=== PATIENT | female | born 1945 | race Caucasian/White ===

== ENCOUNTER 2019-09-15 13:36 | Emergency (ER) | payer MEDICARE, OTHER ==
[~2019-09-15] VITALS: Ht 160 cm; Wt 84.4 kg
--- OUTSIDE RECORDS SUMMARY | ~2019-09-15 | XMS | Encounter Summary ---
Demographics + + + | Address | [address] | | | [place] [address] | + + + | Home Phone | | + + + | Preferred Language | Unknown | + + + | Marital Status | Single | + + + | Anabaptism Affiliation | Unknown | + + + | Race | White | + + + | Ethnic Group | Not or | + + + Author + + + | Author | [facility] | + + + | Organization | [facility] | + + + | Address | Unknown | + + + | Phone | Unavailable | + + + Support + + +---------+ + | Name | Relationship | Address | Phone | + + +---------+ + | Veronica Enciso | ECON | Unknown | | + + +---------+ + Care Team Providers + +------+ + | Care Lumber Stacker Name | Role | Phone | + +------+ + | Prasanth Mooney DO | PCP | | + +------+ + Encounter Details +--------+ + + + + | Date | Type | Department | Care Team | Description | +--------+ + + + + | 09/11/ | Telephone | Neurosurgery at | Sally Casey V, | | | 2019 | | [facility] [address] | [address] | | | | | Cindy Mailcode: [id number] | [address] | | | | | [facility] | [place], [place] | | | | | and [place], | [address] | | | | | [facility] | [phone] | | | | | [place], [place] | | | | | | [address] | | | | | | [phone] | | | +--------+ + + + + Social History + +-------+ +--------+------+ | Tobacco Use | Types | Packs/Day | Years | Date | | | | | Used | | + +-------+ +--------+------+ | Former Smoker | | | | | + +-------+ +--------+------+ + +---+---+---+ | Smokeless Tobacco: | | | | | Never Used | | | | + +---+---+---+ + + | Comments: quit 30 yrs ago | + + + + +---------+ + | Alcohol Use | Drinks/Week | oz/Week | Comments | + + +---------+ + | Not Currently | | | | + + +---------+ + + + + | Sex Assigned at | Date Recorded | | | | + + + | Not on file | | + + + + + + + | Job Start Date | Occupation | Industry | + + + + | Not on file | Not on file | Not on file | + + + + + + + + | Travel History | Travel Start | Travel End | + + + + + + | No recent travel history available. | + + documented as of this encounter Plan of Treatment Not on filedocumented as of this encounter Visit Diagnoses Not on filedocumented in this encounter"
--- OUTSIDE RECORDS SUMMARY | ~2019-09-15 | XMS | Encounter Summary ---
Demographics + + + | Address | [address] [place] [address] | | | [place] [address] | + + + | Home Phone | | + + + | Preferred Language | Unknown | + + + | Marital Status | | + + + | Mandaen Affiliation | Unknown | + + + | Race | Unknown | + + + | Ethnic Group | Unknown | + + + Author + + + | Author | [facility] | | | and [place] | + + + | Organization | [facility] | | | and [place] | + + + | Address | Unknown | + + + | Phone | Unavailable | + + + Support + + + + + | Name | Relationship | Address | Phone | + + + + + | Blackmonherrera Burt | ECON | [address] | | | | | , [address] | | + + + + + Care Team Providers + +------+ + | Care Ultrasonic Solderer Name | Role | Phone | + +------+ + | Jasson Florian MD | PCP | | + +------+ + Reason for Visit +--------+ + | Reason | Comments | +--------+ + | Apnea | | +--------+ + Encounter Details +--------+---------+ + + + | Date | Type | Department | Care Team | Description | +--------+---------+ + + + | 11/29/ | Office | [facility] | Lang Hernandez PA | JAIRO on CPAP (Primary | | 2015 | Visit | SLEEP DISORDER [address] | [address] | Dx) | | | | [address] [place] | [place], [place] | | | | | [place] [address] | [address] | | | | | [phone] | | | +--------+---------+ + + + Social History + +-------+ +--------+------+ | Tobacco Use | Types | Packs/Day | Years | Date | | | | | Used | | + +-------+ +--------+------+ | Never Smoker | | | | | + +-------+ +--------+------+ + +---+---+---+ | Smokeless Tobacco: | | | | | Never Used | | | | + +---+---+---+ + + +---------+ + | Alcohol Use | Drinks/Week | oz/Week | Comments | + + +---------+ + | No | | | | + + +---------+ [...] + + documented as of this encounter Last Filed Vital Signs + + + + + | Vital Sign | Reading | Time Taken | Comments | + + + + + | Blood Pressure | 120/78 | 11/29/2014 11:34 AM | | | | | PST | | + + + + + | Pulse | 96 | 11/29/2014 11:34 AM | | | | | PST | | + + + + + | Temperature | - | - | | + + + + + | Respiratory Rate | 14 | 11/29/2014 11:34 AM | | | | | PST | | + + + + + | Oxygen Saturation | 98% | 11/29/2014 11:34 AM | | | | | PST | | + + + + + | Inhaled Oxygen | - | - | | | Concentration | | | | + + + + + | Weight | 97.1 kg (214 lb 1.6 | 11/29/2014 11:34 AM | | | | oz) | PST | | + + + + + | Height | - | - | | + + + + + | Body Mass Index | 38.54 | 11/01/2014 9:08 AM | | | | | PST | | + + + + + documented in this encounter Progress Notes Lang Hernandez PA - 11/29/2014 11:26 AM PST Subjective: Patient ID: Corina Garcia is a 69 y.o. female. HPI last office visit was: 11/26/2014 date of polysomnography: 11/07/2014 AHI: 17.6 RDI: 17.6 O2%: 81% with 36.9 minutes below 88% Machine type: ResMed AirSense 10 with nasal pillows obtained from: [facility] in [place] pressure: 5-20 cm 95%: 12.8 cm maximum: 13.0 cm Nights using CPAP: 3/3 % of nights >4 hours: 33% average usage (all nights): 3:07 average usage (nights used): 3:07 AHI: 10.3 Corina comes in for CPAP compliance. She has used her CPAP each of her first three nights , but has struggled with wearing it for the duration of her sleep. The first night was diff icult for her to tolerate the pressure, but she wore it for most of the night. The second n ight, she had a difficult time because it wasn't enough pressure. Last night, she fell asle ep without difficulty, but woke later in the night because her mask was leaking. She was no t able to correct the leak, so she went to sleep without it. We went through each of the settings on the CPAP, to ensure that there is a good understand ing of how to make changes to temperature, humidity and/or the ramp. I have increased her h umidity from 3 to 5 and her temperature from 74 to 80 degrees. She is now comfortable makin g adjustments to the settings, if necessary. I have discussed the download in detail. This shows that her sleep apnea is somewhat contr olled, with an AHI of 10.3. This will likely improve as she continues using her CPAP. It a lso shows that her leaks are significant on most nights. Review of Systems Objective: Physical Exam Assessment: Problem #1: OBSTRUCTIVE SLEEP APNEA (327.23) This is well controlled with CPAP. She has used her CPAP each night, but struggled with we aring it for the duration of her sleep. She had problems with her mask leaking and felt odalis t the pressure was too dry. Plan: She is to continue with CPAP indefinitely. I have increased her humidity from 3 to 5 and h er temperature from 74 to 80 degrees. I also adjusted her mask fit. I have recommended odalis t she work toward wearing her CPAP 100% of the time she is asleep. I will follow up again in 2 weeks, sooner prn. Thirty minutes were spent [id number], wit h the majority of time spent in counseling. Lang Hernandez PA-C cc: Jasson Florian MD documented in this enco unter Plan of Treatment Not on filedocumented as of this encounter Visit Diagnoses + + | Diagnosis | + + | JAIRO on CPAP - Primary Obstructive sleep apnea (adult) (pediatric) | + + documented in this encounter"
--- OUTSIDE RECORDS SUMMARY | ~2019-09-15 | XMS | Encounter Summary ---
Demographics + + + | Address | [address] | | | [place] [address] | + + + | Home Phone | | + + + | Preferred Language | Unknown | + + + | Marital Status | Single | + + + | Mandaeism Affiliation | Unknown | + + + | Race | White | + + + | Ethnic Group | Not or | + + + Author + + + | Author | [facility] | + + + | Organization | [facility] | + + + | Address | Unknown | + + + | Phone | Unavailable | + + + Support + + +---------+ + | Name | Relationship | Address | Phone | + + +---------+ + | Veronica Enciso | ECON | Unknown | | + + +---------+ + Care Team Providers + +------+ + | Care Stamping Press Operator Name | Role | Phone | + +------+ + | Jesica Prasanth | PCP | | + +------+ + Encounter Details +--------+------+ + + + | Date | Type | Department | Care Team | Description | +--------+------+ + + + | 09/08/ | Lab | Laboratory at [facility] | | Pituitary lesion | | 2019 | | [address] | | (HCC); Pituitary | | | | [place], [place] | | tumor | | | | [address] | | | | | | [phone] | | | +--------+------+ + + + Social History + +-------+ [...] Not on filedocumented as of this encounter Procedures + +--------+ + + + | Procedure Name | Priori | Date/Time | Associated Diagnosis | Comments | | | ty | | | | + +--------+ + + + | FREE T4 | Routin | 09/08/2019 | Pituitary lesion | Results for this | | | e | 4:19 PM | (HCC) Pituitary | procedure are in the | | | | PST | tumor | results section. | + +--------+ + + + | PROLACTIN | Routin | 09/08/2019 | Pituitary lesion | Results for this | | | e | 4:19 PM | (HCC) Pituitary | procedure are in the | | | | PST | tumor | results section. | + +--------+ + + + | TSH | Routin | 09/08/2019 | Pituitary lesion | Results for this | | | e | 4:19 PM | (HCC) Pituitary | procedure are in the | | | | PST | tumor | results section. | + +--------+ + + + documented in this encounter Results TSH (09/08/2019 4:19 PM PST) + +-------+ + + + | Component | Value | Ref Range | Performed | Pathologist | | | | | At | Signature | + +-------+ + + + | TSH | 1.16 | 0.47 - 7.11 | [facility] | | | | | mIU/L | LABORATORY | | | | | | SERVICES, | | | | | | CORE | | + +-------+ + + + + + | Specimen | + + | Blood - Blood | | (substance) | + + + + + | Narrative | Performed At | + + + | TSH reference ranges are influenced by a variety of environmental | [facility] | | influences, age, gender and ethnicity. The supplied reference limits | LABORATORY | | are based on published values utilizing a similar TSH assay, and | SERVICES, [place] | | should be interpreted with caution. | | + + + + + + + + | Performing | Address | City/State/Zipcode | Phone Number | | Organization | | | | + + + + + | [facility] | [address] | [place] [address] | | | [place] | [address] | | | + + + + + PROLACTIN (09/08/2019 4:19 PM PST) + +-------+ + + + | Component | Value | Ref Range | Performed | Pathologist | | | | | At | Signature | + +-------+ + + + | PROLACTIN | 7.5 | 2.8 - 26.0 | [facility] | | | | | ng/ml | LABORATORY | | | | | | SERVICES, | | | | | | CORE | | + +-------+ + + + + + | Specimen | + + | Blood - Blood | | (substance) | + + + + + | Narrative | Performed At | + + + | Test performed in [facility]. New reference range in effect | [facility] | | 2-6-18. | LABORATORY | | | [place] | + + + + + + + + | Performing | Address | City/State/Zipcode | Phone Number | | Organization | | | | + + + + + | [facility] | [address] | [place] [address] | | | SERVICESJACEY | [address] | | | + + + + + FREE T4 (09/08/2019 4:19 PM PST) + +-------+ + + + | Component | Value | Ref Range | Performed | Pathologist | | | | | At | Signature | + +-------+ + + + | FREE T4 | 1.0 | 0.6 - 1.2 ng/dL | [facility] | | | | | | LABORATORY | | | | | | SERVICES, | | | | | | CORE | | + +-------+ + + + + + | Specimen | + + | Blood - Blood | | (substance) | + + + + + + + | Performing | Address | City/State/Zipcode | Phone Number | | Organization | | | | + + + + + | [facility] | [address] | [place] [address] | | | SERVICES, CORE | [address] | | | + + + + + documented in this encounter Visit Diagnoses + + | Diagnosis | + + | Pituitary 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
--- OUTSIDE RECORDS SUMMARY | ~2019-09-15 | XMS | Encounter Summary ---
Demographics + + + | Address | [address] [place] [address] | | | [place] [address] | + + + | Home Phone | | + + + | Preferred Language | Unknown | + + + | Marital Status | | + + + | Cheondoism Affiliation | Unknown | + + + | Race | Unknown | + + + | Ethnic Group | Unknown | + + + Author + + + | Author | [facility] | | | and [place] | + + + | Organization | [facility] | | | and [place] | + + + | Address | Unknown | + + + | Phone | Unavailable | + + + Support + + + + + | Name | Relationship | Address | Phone | + + + + + | Neymar Burt | ECON | [address] | | | | | , [address] | | + + + + + Care Team Providers + +------+ + | Care Airport Security Screener Name | Role | Phone | + +------+ + | Jasson Florian MD | PCP | | + +------+ + Reason for Visit Evaluate & Treat (Routine) +--------+ + + + + + | Status | Reason | Specialty | Diagnoses / | Referred By | Referred To | | | | | Procedures | Contact | Contact | +--------+ + + + + + | Closed | Specialty | Sleep | Diagnoses | [place], | [facility] | | | Services | Medicine | JA[facility]O | Dann Borges | [place] [address] | | | Required | | (obstructive | MD [address] | [place] | | | | | sleep | [place] | [place], | | | | | apnea) | [place] | [place] [address] | | | | | Diabetes | [facility], [place] | Phone: | | | | | type 2, | [address] | [phone] | | | | | controlled | Phone: | Fax: | | | | | (HCC) | [phone] | [phone] | | | | | Essential | Fax: | | | | | | hypertension | [phone] | | | | | | Procedures | | | | | | | CO POLYSOM | | | | | | | 6/>YRS | | | | | | | SLEEP 4/> | | | | | | | ADDL DAIJA | | | | | | | ATTND NPSG | | | | | | | (11/28) on cx | | | | | | | list | | | +--------+ + + + + + Encounter Details +--------+ + + + + | Date | Type | Department | Care Team | Description | +--------+ + + + + | 11/07/ | Hospital | [facility] | Dann Alcocer | Type II or | | 2014 | Encounter | MED CTR SLEEP | MD [address] | unspecified type | | | | CENTER [address] | [place] [facility] | diabetes mellitus | | | | [place], [place] | [place] [address] | without mention of | | | | [address] | [phone] | complication, not | | | | [phone] | | stated as | | | | | | uncontrolled (HCC) | | | | | | (Primary Dx); | | | | | | Unspecified | | | | | | essential | | | | | | hypertension | +--------+ + + + + Social [...] + + documented as of this encounter Medications at Time of Discharge + + + +---------+--------+ + | Medication | Sig | Dispensed | Refills | Start | End Date | | | | | | Date | | + + + +---------+--------+ + | montelukast | Take 10 mg by mouth | | 0 | | | | (SINGULAIR) 10 mg | nightly. | | | | | | tablet | | | | | | + + + +---------+--------+ + | aspirin 162 MG EC | Take 162 mg by mouth | | 0 | | | | tablet | Daily. | | | | 8 | + + + +---------+--------+ + | atorvaSTATin | Take 20 mg by mouth | | 0 | | | | (LIPITOR) 10 mg | Daily. | | | | 9 | | tablet | | | | | | + + + +---------+--------+ + | buPROPion | Take 200 mg by mouth | | 0 | | | | (WELLBUTRIN) 100 mg | 2 times daily. | | | | 8 | | tablet | | | | | | + + + +---------+--------+ + | Calcium-Vitamin D | Take 2 tablets by | | 0 | | | | 500-100 MG-UNIT WAFR | mouth Every other | | | | 8 | | | day. Takes every | | | | | | | other day 2 times. | | | | | + + + +---------+--------+ + | chlorthalidone 25 | Take 25 mg by mouth | | 0 | | | | mg tablet | Daily. | | | | 8 | + + + +---------+--------+ + | losartan (COZAAR) | Take 25 mg by mouth | | 0 | | | | 100 MG tablet | Daily. | | | | 9 | + + + +---------+--------+ + | metoprolol | Take 50 mg by mouth | | 0 | | | | tartrate (LOPRESSOR) | 2 times daily. | | | | 8 | | 50 mg tablet | | | | | | + + + +---------+--------+ + | omeprazole | Take 20 mg by mouth | | 0 | | | | (PRILOSEC) 20 mg | every morning | | | | 8 | | capsule | (before breakfast). | | | | | + + + +---------+--------+ + | sitaGLIPtin | Take 100 mg by mouth | | 0 | | | | (JANUVIA) 100 mg | Daily. | | | | 9 | | tablet | | | | | | + + + +---------+--------+ + | venlafaxine | Take 37.5 mg by | | 0 | | | | (EFFEXOR) 25 MG | mouth Daily. | | | | 8 | | tablet | | | | | | + + + +---------+--------+ + documented as of this encounter Plan of Treatment Not on filedocumented as of this encounter Procedures + +--------+ + + + | Procedure Name | Priori | Date/Time | Associated Diagnosis | Comments | | | ty | | | | + +--------+ + + + | DIAGNOSTIC REPORT - | | 11/07/2013 | | | | EXTERNAL SCAN | | 12:00 AM | | | | | | PST | | | + +--------+ + + + documented in this encounter Visit Diagnoses + + | Diagnosis | + + | Type II or unspecified type diabetes mellitus without mention of complication, not | | stated as uncontrolled - Primary | + + | Unspecified essential hypertension | + + documented in this encounter"
--- OUTSIDE RECORDS SUMMARY | ~2019-09-15 | XMS | Encounter Summary ---
Demographics + + + | Address | [address] [place] [address] | | | [place] [address] | + + + | Home Phone | | + + + | Preferred Language | Unknown | + + + | Marital Status | | + + + | Uatsdin Affiliation | Unknown | + + + | Race | Unknown | + + + | Ethnic Group | Unknown | + + + Author + + + | Author | [facility] | | | and [place] | + + + | Organization | [facility] | | | and [place] | + + + | Address | Unknown | + + + | Phone | Unavailable | + + + Support + + + + + | Name | Relationship | Address | Phone | + + + + + | Blackmonherrera Burt | ECON | [address] | | | | | , [address] | | + + + + + Care Team Providers + +------+ + | Care Director Of Student Affairs Name | Role | Phone | + +------+ + | Jasson Florian MD | PCP | | + +------+ + Reason for Visit + + + | Reason | Comments | + + + | CPAP Follow Up | | + + + Encounter Details +--------+---------+ + + + | Date | Type | Department | Care Team | Description | +--------+---------+ + + + | 01/29/ | Office | [facility] | Lang Hernandez PA | JAIRO on CPAP (Primary | | 2016 | Visit | SLEEP DISORDER [address] | [address] | Dx) | | | | [address] [place] | [place] | | | | | [place] [address] | [address] | | | | | [phone] | | | +--------+---------+ + + + [...] + + + | Blood Pressure | 98/60 | 01/30/2016 1:47 PM | | | | | PDT | | + + + + + | Pulse | 76 | 01/30/2016 1:47 PM | | | | | PDT | | + + + + + | Temperature | - | - | | + + + + + | Respiratory Rate | 16 | 01/30/2016 1:47 PM | | | | | PDT | | + + + + + | Oxygen Saturation | 98% | 01/30/2016 1:47 PM | | | | | PDT | | + + + + + | Inhaled Oxygen | - | - | | | Concentration | | | | + + + + + | Weight | 89.6 kg (197 lb 8 | 01/30/2016 1:47 PM | | | | oz) | PDT | | + + + + + | Height | - | - | | + + + + + | Body Mass Index | 35.55 | 11/01/2014 9:08 AM | | | | | PST | | + + + + + documented in this encounter Progress Notes Sara Antonio, JIE - 01/30/2016 1:53 PM PDT 01/30/16 1300 [address] Depression Inventory-II Depression Score 1 - Minimal depression Insomnia Severity Index Insomnia Severity Index 2 Sumner Sleepiness Scale Sitting and reading 1 Watching TV 0 Sitting, inactive in a public place (e.g. a theatre or a meeting) 0 As a passenger in a car for an hour without a break 1 Lying down to rest in the afternoon when circumstances permit 0 Sitting and talking to someone 0 Sitting quietly after a lunch without alcohol 0 In a car, while stopped for a few minutes in traffic 0 Total score 2 SF-36v2 Score PF 57.54 RP 52.66 BP 62 GH 65.07 VT 58.54 SF 57.34 RE 52.69 MH 61.33 PCS 58.88 MCS 57.19 Lang Chowdhury PA - 1:22 PM PDT Subjective: Patient ID: Corina Garcia is a 71 y.o. female. HPI last office visit was: 01/29/2015 date of polysomnography: 11/07/2014 AHI: 17.6 RDI: 17.6 O2%: 81% with 36.9 minutes below 88% Machine type: ResMed AirSense 10 with nasal pillows/nasal mask obtained from: [facility] in [place] pressure: 5-20 cm Median: 11.3 cm 95%: 12.4 cm maximum: 12.8 cm Nights using CPAP: 46/47 150/365 % of nights >4 hours: 85% 37% average usage (all nights): 5:28 2:26 average usage (nights used): 5:36 5:56 AHI: 4.4 "Amina" comes in for CPAP compliance. She was doing well with her compliance at her last appointment, but has not used her CPAP in several months. She lost a considerable amount of weight and was not able to notice a difference in her sleep whether using CPAP or not, so s he decided to stop wearing it. She considered calling us to discuss this, but didn't. I ex plained to her that she has mild apnea, according to her AHI of 17.6, but significant oxygen desaturation with 36.9 minutes below 88%. Studies show an increased risk of heart attack a nd stroke with this level of oxygen desaturation. She understands this and is interested in doing a nocturnal pulse oxymetry study without CPAP on room air. She will resume using CPA P, if needed. I have discussed the download and results of the paperwork in detail. The download shows t hat her sleep apnea is well controlled, with an AHI of 4.4. It also shows that her leaks ar e well controlled. BP 98/60 mmHg | Pulse 76 | Resp 16 | Wt 89.585 kg (197 lb 8 oz) | SpO2 98% Review of Systems Objective: Physical Exam Assessment: Problem #1: OBSTRUCTIVE SLEEP APNEA (KCB52-C61.33) This is well controlled with CPAP. She has lost weight since her last visit and has chosen to sleep without her CPAP. She has mild apnea with an AHI of 17.6, but has significant oxy gen desaturation with 36.9 minutes below 88% during her diagnostic study. Plan: 1. She is to continue with CPAP indefinitely. 2. We have faxed a prescription to [facility] in [place] for a nocturnal pulse oxymetry pasquale dy without CPAP on room air. We will call her with the results. 3. She will resume using CPAP, if needed. I will follow up again in 1 year, sooner prn. Fifteen minutes were spent [id number], wit h the majority of time spent in counseling. Lang Hernandez PA-C cc: Jasson Florian MD documented in this enco unter Plan of Treatment Not on filedocumented as of this encounter Visit Diagnoses + + | Diagnosis | + + | JAIRO on CPAP - Primary Obstructive sleep apnea (adult) (pediatric) | + + documented in this encounter
--- OUTSIDE RECORDS SUMMARY | ~2019-09-15 | XMS | Encounter Summary ---
Demographics + + + | Address | [address] [place] [address] | | | [place] [address] | + + + | Home Phone | | + + + | Preferred Language | Unknown | + + + | Marital Status | | + + + | Rastafari Affiliation | Unknown | + + + | Race | Unknown | + + + | Ethnic Group | Unknown | + + + Author + + + | Author | [facility] | | | and [place] | + + + | Organization | [facility] | | | and [place] | + + + | Address | Unknown | + + + | Phone | Unavailable | + + + Support + + + + + | Name | Relationship | Address | Phone | + + + + + | Neymar Burt | ECON | [address] | | | | | , [phone] | | + + + + + Care Team Providers + +------+ + | Care Document Review Specialist Name | Role | Phone | + [...] Description | +--------+---------+ + + + | 06/28/ | Office | [facility] | Lang Hernandez PA | JAIRO on CPAP (Primary | | 2019 | Visit | SLEEP DISORDER [address] | [address] | Dx) | | | | [address] | [place] | | | | | [place] [phone] | [address] | | | | | [phone] | | | +--------+---------+ + + + [...] + + + | Blood Pressure | 100/66 | 06/28/2019 1:10 PM | | | | | PDT | | + + + + + | Pulse | 76 | 06/28/2019 1:10 PM | | | | | PDT | | + + + + + | Temperature | - | - | | + + + + + | Respiratory Rate | 16 | 06/28/2019 1:10 PM | | | | | PDT | | + + + + + | Oxygen Saturation | 99% | 06/28/2019 1:10 PM | | | | | PDT | | + + + + + | Inhaled Oxygen | - | - | | | Concentration | | | | + + + + + | Weight | 86.3 kg (190 lb 4.1 | 06/28/2019 1:10 PM | | | | oz) | PDT | | + + + + + | Height | - | - | | + + + + + | Body Mass Index | 34.24 | 06/24/2017 1:56 PM | | | | | PDT | | + + + + + documented in this encounter Progress Notes Lang Hernandez PA - 06/28/2019 1:00 PM PDT Subjective: Patient ID: Corina Garcia is a 74 y.o. female. HPI last office visit: 08/23/2018 date of polysomnography: 11/07/2014 AHI: 17.6 RDI: 17.6 O2%: 81% with 36.9 minutes below 88% Machine type: ResMed AirSense 10 Mask type: nasal mask DME: [facility] in [place] pressure: 5-20 cm Median: 10.8 cm 95%: 12.8 cm maximum: 13.6 cm Nights using CPAP: 44/45 329/365 % of nights >4 hours: 93% 77% average usage (all nights): 6:08 4:58 average usage (nights used): 6:17 5:31 AHI: 0.7 "Amina" comes in for CPAP compliance. At one point she had lost a significant amount of w eight and stopped using her CPAP. Nocturnal pulse oxymetry on room air without CPAP showed that she continued to have significant oxygen desaturation. She has since returned to using CPAP. She is doing well with her CPAP usage when wearing it, but often struggles with her consistency. She has been much more consistent during the last year. Her CPAP has become a regular part of her sleep routine. She does not have any questions or concerns. I have discussed the download in detail. The download shows that her sleep apnea is contro lled, with an AHI of 0.7. It also shows that her leaks are controlled. Review of Systems Objective: Physical Exam BP 100/66 | Pulse 76 | Resp 16 | Wt 86.3 kg (190 lb 4.1 oz) | SpO2 99% | BMI 34.24 kg/ m Assessment: Problem #1: OBSTRUCTIVE SLEEP APNEA ([id number]) This is controlled with CPAP. She is doing well with her CPAP usage. Plan: 1. She is to continue with CPAP indefinitely. 2. Touch base with medical supplier twice per year to ensure that all equipment is satisfa ctory. I will follow up again in 1 year, sooner prn. Fifteen minutes were spent [id number], wit h the majority of time spent in counseling. Lang Hernandez PA-C cc: Prasanth Mooney MD documented in this enco unter Plan of Treatment Not on filedocumented as of this encounter Visit Diagnoses + + | Diagnosis | + + | JAIRO on CPAP - Primary Obstructive sleep apnea (adult) (pediatric) | + + documented in this encounter
--- OUTSIDE RECORDS SUMMARY | ~2019-09-15 | XMS | Clinical Summary ---
Demographics + + + | Address | [address] | | | [place] [address] | + + + | Home Phone | | + + + | Preferred Language | Unknown | + + + | Marital Status | Single | + + + | Pentecostal Affiliation | Unknown | + + + | Race | White | + + + | Ethnic Group | Not or | + + + Author + + + | Author | [facility] | + + + | Organization | [facility] | + + + | Address | Unknown | + + + | Phone | Unavailable | + + + Support + + +---------+ + | Name | Relationship | Address | Phone | + + +---------+ + | Veronica Enciso | ECON | Unknown | | + + +---------+ + Care Team Providers + +------+ + | [employer] Professor Name | Role | Phone | + +------+ + | Jesica Prasanth | PCP | | + +------+ + Source Comments [facility] is fully live on both [facility] and [facility] InPatient.[facility] Allergies + + + + + + | Active Allergy | Reactions | Severity | Noted | Comments | | | | | Date | | + + + + + + | Sulfa (Sulfonamide | Rash | Medium | 09/08/20 | | | Antibiotics) | | | 19 | | + + + + + + Medications + + + +---------+------+------+-------+ | Medication | Sig | Dispensed | Refills | Star | End | Statu | | | | | | t | Date | s | | | | | | Date | | | + + + +---------+------+------+-------+ | gabapentin 300 mg | Take 300 mg by mouth | | 0 | | | Activ | | oral capsule | two times daily. 1 | | | | | e | | | in the am2 in the pm | | | | | | + + + +---------+------+------+-------+ | spironolactone 50 | Take 50 mg by mouth | | 0 | | | Activ | | mg oral tablet | once daily. | | | | | e | + + + +---------+------+------+-------+ | metoprolol | Take 100 mg by mouth | | 0 | | | Activ | | succinate 100 mg | once daily. | | | | | e | | oral tablet extended | | | | | | | | release 24 hr | | | | | | | + + + +---------+------+------+-------+ | FLUoxetine 20 mg | Take 20 mg by mouth | | 0 | | | Activ | | oral capsule | once daily. | | | | | e | + + + +---------+------+------+-------+ | lovastatin 10 mg | Take 10 mg by mouth | | 0 | | | Activ | | oral tablet | once daily in the | | | | | e | | | evening. Administer | | | | | | | | with evening meal. | | | | | | + + + +---------+------+------+-------+ | metFORMIN SR 500 | Take 500 mg by mouth | | 0 | | | Activ | | mg oral tablet | two times daily. | | | | | e | | extended release 24 | Administer with | | | | | | | hr | evening meal. | | | | | | + + + +---------+------+------+-------+ | montelukast | Take 10 mg by mouth | | 0 | | | Activ | | (SINGULAIR) 10 mg | once daily. 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 | +--------+ + + + + | 09/08/ | Office | Neurological Surgery | Sally Casey V, | Pituitary lesion | | 2018 | Visit | | MD | ([facility]) (Primary Dx) | +--------+ + + + + | 09/08/ | Office | Neurological Surgery | Alfonso Smith MD | | | 2018 | Visit | | | | +--------+ + + + + | 09/08/ | Travel | | | | | 2018 | | | | | +--------+ + + + + | 08/25/ | Hospital | | | | | 2019 | Encounter | | | | +--------+ + + + + from Last 3 Months Family History + + +------+ + | Medical History | Relation | Name | Comments | + + +------+ + | Colon Cancer | Father | | | + + +------+ + | Breast Cancer | Mother | | | + + +------+ + + +------+--------+ + | Relation | Name | Status | Comments | + +------+--------+ + | Father | | | | + +------+--------+ + | Mother | | | | + +------+--------+ + Social History + +-------+ +--------+------+ | [...] recent travel history available. | + + Last Filed Vital Signs + + + + + | Vital Sign | Reading | Time Taken | Comments | + + + + + | Blood Pressure | 118/76 | 09/08/2019 1:16 PM | | | | | PST | | + + + + + | Pulse | - | - | | + + + + + | Temperature | - | - | | + + + + + | Respiratory Rate | - | - | | + + + + + | Oxygen Saturation | - | - | | + + + + + | Inhaled Oxygen | - | - | | | Concentration | | | | + + + + + | Weight | 83.1 kg (183 lb 1.6 | 09/08/2019 1:16 PM | | | | oz) | PST | | + + + + + | Height | 160 cm (5' 3") | 09/08/2019 1:16 PM | | | | | PST | | + + + + + | Body Mass Index | 32.43 | 09/08/2019 1:16 PM | | | | | PST | | + + + + + Plan of Treatment + + + + + | Health Maintenance | Due Date | Last Done | Comments | + + + + + | Pneumococcal | | 07/04/2018 | | | vaccination (2 of 2 | 2 | | | | - PPSV23) | | | | + + + + + | Influenza (Flu) | | 07/04/2018 | | | vaccination (#1) | 9 | | | + + + + + Procedures + +--------+ + + + | [...] section. | + +--------+ + + + from Last 3 Months Results FREE T4 (09/08/2019 4:19 PM PST) + [...] | + + + + + | [facility] | [address] | [place] [address] | | | SERVICES, CORE | [address] [...] + + | Test performed in [facility] lab. New reference range in effect | [facility] | | 2-6-18. | LABORATORY | | | SERVICES, CORE | + + + + + + + + | Performing | Address | City/State/Zipcode | Phone Number | | Organization | | | | + + + + + | [facility] | [address] | [place] [address] | | | SERVICES, [facility] | [address] | | | + + + + + TSH (09/08/2019 4:19 PM PST) + +-------+ [...] a similar TSH assay, and | SERVICES, CORE | | should be interpreted with caution. | | + + + + + + + + | Performing | Address | City/State/Zipcode | Phone Number | | Organization | | | | + + + + + | [facility] | [address] | [place] [address] | | | SERVICES, CORE | [address] | | | + + + + + from Last 3 Months Insurance + +--------+ +--------+ + +--------+ | Payer | Benefi | Subscriber | Effect | Phone | Address | Type | | | t Plan | ID | leeann | | | | | | / | | Dates | | | | | | Group | | | | | | + +--------+ +--------+ + +--------+ | MEDICARE | MEDICA | xxxxxxxxxxx | 01/03/20 | [phone] | [address] | [address] | | | RE A & | | 12-Pre | [phone] | | | [address] | | sent | | [place], [place] | | | | | | | | [address] | | + +--------+ +--------+ + +--------+ | | TRICAR | xxxxxxxxx | Effect | [phone] | | Indemn | | | E 4 | | leeann | 8 | | ity | | | LIFE | | for | | | | | | | | all | | | | | | | | dates | | | | + +--------+ +--------+ + +--------+ + +--------+ +--------+ + + | Guarantor Name | Accoun | Relation to | Date | Phone | Billing Address | | | t Type | Patient | of | | | | | | | | | | + +--------+ +--------+ + + | Corina Garcia | Person | Self | [birth year] | [address] | | | al/[place] | | 1945 | [phone] | [place] | | | [place] | | | [address] (Home) | [phone] | + +--------+ +--------+ + +
--- OUTSIDE RECORDS SUMMARY | ~2019-09-15 | XMS | Encounter Summary ---
Demographics + + + | Address | [address] [place] [address] | | | [place] [address] | + + + | Home Phone | | + + + | Preferred Language | Unknown | + + + | Marital Status | | + + + | Congregational Affiliation | Unknown | + + + | Race | Unknown | + + + | Ethnic Group | Unknown | + + + Author + + + | Author | [facility] | | | and [place] | + + + | Organization | [facility] | | | and [place] | + + + | Address | Unknown | + + + | Phone | Unavailable | + + + Support + + + + + | Name | Relationship | Address | Phone | + + + + + | Neymar Burt | ECON | [address] | | | | | , [address] | | + + + + + Care Team Providers + +------+ + | Care Big Data Software Engineer Name | Role | Phone | + +------+ + | Jasson Florian MD | PCP | | + +------+ + Reason for Referral Evaluate & Treat (Routine) +--------+ + + [...] Medicine | JAIRO | Dann Borges | [place] [address] | | | Required | | (obstructive | [address] | [place] | | | | | sleep | [place] | Jesse Molina, | | | | | apnea) | [facility] | [place] [address] | | | | | Diabetes | [place], [place] | Phone: | | | | | type 2, | [address] | [phone] | | | | | controlled | Phone: | Fax: | | | | | (HCC) | [phone] | [phone] | | | | | Essential | Fax: | | | | | | hypertension | [phone] | | | | | | Procedures | | | | | | | [place] [facility] | | | | | | | 6/>YRS | | | | | | | SLEEP 4/> | | | | | | | ADDL DAIJA | | | | | | | ATTND NPSG | | | | | | | (11/28) on cx | | | | | | | list | | | +--------+ + + + + + Reason for Visit +---------+ + | Reason | Comments | +---------+ + | Consult | | +---------+ + | Snoring | | +---------+ + Evaluate & Treat (Routine) +--------+--------+ + + + + | Status | Reason | Specialty | Diagnoses / | Referred By | Referred To | | | | | Procedures | Contact | Contact | +--------+--------+ + + + + | Closed | | Internal | Diagnoses | Jasson Florian | [place] | | | | Medicine - | Obstructive | MD [address] | Dann Borges | | | | Sleep | sleep apnea | [facility] | [address] | | | | Medicine / | (adult) | [facility] | [facility] | | | | Sleep | (pediatric) | [facility] | [facility] | | | | Medicine | consult | [place] [address] | [place], [place] | | | | | [phone] | Phone: | [phone] Phone: | | | | | Procedures | [phone] | [phone] | | | | | NEW PATIENT | Fax: | Fax: | | | | | | [phone] | [phone] | +--------+--------+ + + + + Encounter Details +--------+---------+ + + + | Date | Type | Department | Care Team | Description | +--------+---------+ + + + | 11/01/ | Office | [facility] | Dann Alcocer | JAIRO (obstructive | | 2015 | Visit | SLEEP DISORDER [address] | [address] | sleep apnea) | | | | [address] [place] | [address] [place] | (Primary Dx); | | | | [place] [address] | [place] [address] | Diabetes type 2, | | | | [phone] | [phone] | controlled (HCC); | | | | | | Essential | | | | | | hypertension; | | | | | | Obesity | +--------+---------+ + + + Social History [...] + + + | Blood Pressure | 118/66 | 11/01/2014 9:08 AM | | | | | PST | | + + + + + | Pulse | 88 | 11/01/2014 9:08 AM | | | | | PST | | + + + + + | Temperature | - | - | | + + + + + | Respiratory Rate | 14 | 11/01/2014 9:08 AM | | | | | PST | | + + + + + | Oxygen Saturation | 99% | 11/01/2014 9:08 AM | | | | | PST | | + + + + + | Inhaled Oxygen | - | - | | | Concentration | | | | + + + + + | Weight | 96.7 kg (213 lb 3.2 | 11/01/2014 9:08 AM | | | | oz) | PST | | + + + + + | Height | 158.8 cm (5' 2.5") | 11/01/2014 9:08 AM | | | | | PST | | + + + + + | Body Mass Index | 38.37 | 11/01/2014 9:08 AM | | | | | PST | | + + + + + documented in this encounter Patient Instructions Patient Instructions Dann Alcocer Jr., MD - 11/01/2014 10:08 AM [facility] What Are Snoring and Sleep Apnea? If you ve ever had a stuffed-up nose, you know the feeling of trying to breathe through a very narrow passageway. This is what happens in your throat when you snore. While you sleep , structures in your throat partially block your air passage, making the passage narrow and hard to breathe through. If the entire passage becomes blocked and you can t breathe at al l, you have sleep apnea. Snoring If your throat structures are too large or the muscles relax too much during sleep, the air passage may be partially blocked. As air from the nose or mouth passes around this blockage , the throat structures vibrate, causing the familiar sound of snoring. At times, this sound can be so loud that snorers wake up others, or even themselves, during the night. Snoring g ets worse as more and more of the air passage is blocked. Sleep Apnea If the structures completely block the throat, air can t flow to the lungs at all. This i s called apnea (meaning no breathing ). Since the lungs aren t getting fresh air, the brain tells the body to wake up just enough to tighten the muscles and unblock the air pass age. With a loud gasp, breathing begins again. This process may be repeated over and over ag ain throughout the night, making your sleep fragmented with a rehabilitator stage of sleep. Even t neisha you do not remember waking up many times during the night to a rehabilitator sleep, you feel tired the next day. The lack of sleep and fresh air can also strain your lungs, heart, and other organs, leading to problems such as high blood pressure, heart attack, or stroke. Problems in the Nose and Jaw Problems in the structure of the nose may obstruct breathing. A crooked (deviated) septum o r swollen turbinates can make snoring worse or lead to apnea. Also, a receding jaw may make the tongue sit too far back, so it s more likely to block the airway when you re asleep. [address] [place] [address], [place] [address]. All righ ts reserved. This information is not intended as a substitute for professional medical care. Always follow your healthcare professional's instructions. What Is a Sleep Study? Do you often have problems sleeping? Do you feel tired most days of the week? Talk to your health care provider or a sleep specialist. He or she may suggest that you have a sleep stud y. It can help diagnose a sleep disorder such as sleep apnea or narcolepsy. During the study , a special machine is used to monitor your sleep. Who Needs a Sleep Study? If you have sleep problems that last longer than a few weeks, you may need a sleep study. T alk to your health care provider. Be prepared to answer questions about your health history. Try to keep a daily sleep diary for a week or 2. Write down the time you go to bed, the padmini e you wake up, and anything that seems to affect your sleep. Then your health care provider can refer you to a sleep specialist and recommend a sleep study. Monitoring Your Sleep Your sleep can be monitored at a sleep clinic or at your home. In either case, your health care provider will discuss the results with you at a future visit: At a sleep clinic. Most sleep studies are done at a sleep clinic or a sleep lab. In many cases, you will need to stay overnight. You will sleep in a private room, much like a hotel or hospital room. A family member or a friend can come along, but cannot stay overnight. Mo st people don t have trouble sleeping during the study. In the morning you can go home. So metimes you may be asked to come back for a daytime nap study. At home. At times, a sleep study can be done at home. A home sleep study provides most o f the same information as a study done at a clinic. A special computer is loaned to you by a sleep clinic or a medical supplier. You will be given instructions on how to use it. Or, so meone may come to your home to help. Before bedtime, the computer is turned on to monitor yo ur sleep all night. In the morning, you return the computer. [address] [place] [address]. All righ ts reserved. This information is not intended as a substitute for professional medical care. Always follow your healthcare professional's instructions. Monitoring Your Sleep: Sleep Lab Testing Checking your sleep during a nighttime sleep study is often the only way to find out if you have conditions such as sleep apnea or other sleep problems. A sleep study records how your lungs, heart, brain, and other parts of your body function while you re asleep. It s pa inless, risk-free, and in most cases takes 1 full night. Testing in a Sleep Clinic If you spend the night in a sleep clinic, you will have a private bedroom. A critical power technician dulce l attach many sensors to your body, then go into another room. As you sleep, your heart rate , breathing, oxygen level, brain activity, and other functions will be tracked. A microphone and video camera will record your breathing sounds and body movements. The critical power technician will keep watch nearby. If you need an air pressure device to help you breathe, one will be avail able. Tips for Testing in a Sleep Lab Before your sleep study, bathe and wash your hair. Don t use conditioners, oils, or ma keup. Stick to your normal routine. If you usually drink alcohol, exercise, or take medication before bed, ask your health care provider whether you should do so the night of your study. Most patients undergoing a sleep study should take all of their medications as they typical ly would at home. Bring your toothbrush, sleepwear, pillow, something to read, and anything else that will help you sleep well. Getting the Results The results of your sleep study need to be scored and interpreted. Once this is done, your health care provider will discuss the findings with you. The sleep study results will show w hether you have sleep apnea. It can also tell how severe the apnea is. The findings help you r health care provider know which treatment or treatments may be the right ones for you. [id number] [place] [address]. All righ ts reserved. This information is not intended as a substitute for professional medical care. Always follow your healthcare professional's instructions. documented in this encounter Progress Notes Dann Alcocer Jr., MD - 11/01/2014 9:20 AM PSTFormatting of this note might be differen t from the original. [facility] [place] [address] Ref: Jasson Florian MD CC: Chief Complaint Patient presents with Consult Snoring History of the Present Illness:This is a 69 year old female who is referred for sleep medic ine consultation by Dr. Liang Florian because of possible JAIRO. Other significant medical issues inc lude AODM, Depression, GERD, Asthma, HBP, hypercholesterolemia, DJD. The patient's records ( Dr. Florian's note of 10/08/2014) are reviewed. The patient is interviewed and examined. Bedtime is usually about 10:30-11pm and rise time is about 7:30am. She estimates a latency to sleep onset of just a few minutes. She has nocturia once a night (but not every night) an d she gets back to sleep easily. She does have occasional night sweats. She denies nocturnal heartburn. She awakens every morning with a dry mouth and nasal/sinus congestion but not he adaches. She dreams rarely. She denies hypnagogic hallucinations. She isn't a sleep walker. She kristie es dream enactment while asleep. She denies sleep paralysis. She denies restlessness in her legs or arms at night. Her has never told her that h er legs or arms kick or twitch rhythmically at night after she falls asleep. She doesn't tos s and turn at night. She does snore and she has been told that she snores loudly. People have refused to sleep n ear her because of this. She does use a nasal strip which helps some. Her thinks odalis t she has sleep apnea and he as told her that she can stop breathing at night. She sleeps ra rely supine because she doesn't sleep as well. In the daytime she feels often fatigued and not as energetic "as I'd like to be." "It doesn 't take much for me to fall asleep sitting in a chair." She gets drowsy driving but she does n't think that she has actually ever fallen asleep driving. She denies cataplexy. She consum es about 3 cups of coffee in the morning. The patient recently has undergone a left total knee replacement. She recalls that she desa turated significantly in the immediate post-operative period (we do not have those records). Past Medical History: has a past medical history of Obesity; JAIRO (obstructive sleep apnea) ; Positive PPD; Diabetes type 2, controlled (HCC); HBP (high blood pressure); DJD (degenerat leeann joint disease); Loss of hearing; Depression; and Hypercholesterolemia. has past surgical history that includes Tonsillectomy and adenoidectomy (1956); cortney and bs o (1990); Cholecystectomy (); right hand surgery (2012); right total knee replacement (2007); left total knee replacement (2013); and Carpal tunnel release (1993). Allergies Allergen Reactions Sulfa Antibiotics Current Outpatient Prescriptions Medication Sig Dispense Refill aspirin 162 MG EC tablet Take 162 mg by mouth Daily. atorvaSTATin (LIPITOR) 10 mg tablet Take 10 mg by mouth 2 times daily. buPROPion (WELLBUTRIN) 100 mg tablet Take 100 mg by mouth 2 times daily. Calcium-Vitamin D 500-100 MG-UNIT WAFR Take 2 tablets by mouth Daily. chlorthalidone 25 mg tablet Take 25 mg by mouth Daily. losartan (COZAAR) 100 MG tablet Take 100 mg by mouth Daily. metoprolol tartrate (LOPRESSOR) 50 mg tablet Take 50 mg by mouth 2 times daily. montelukast (SINGULAIR) 10 mg tablet Take 10 mg by mouth nightly. omeprazole (PRILOSEC) 20 mg capsule Take 20 mg by mouth every morning (before breakfast ). sitaGLIPtin (JANUVIA) 100 mg tablet Take 100 mg by mouth Daily. venlafaxine (EFFEXOR) 25 MG tablet Take 25 mg by mouth Daily. Family Medical History: family history includes Asthma in her brother; Cancer in her father ; and Heart disease in her mother. indicated that her mother is . She indicated that her father is . She indic ated that her brother is alive. She indicated that her daughter is alive. She indicated that her son is alive. 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 Review of Systems: Constitutional: Denies unexplained fevers, chills, sweats, significant recent weight mello ge. Eyes:Denies sudden loss of vision, diplopia, blurred vision. ENT: Denies vertigo, nasal or sinus congestion, bleeding gums or poor dental repair. [facility] hearing aids Card:Denies exertional substernal chest heaviness, leg pain. Denies palpitations, orthopn ea, ankle edema, presyncope. Resp: Denies cough, wheezing, asthma, hemoptysis GI: Denies nausea, vomiting, abdominal pain, diarrhea, constipation, hematochezia. : Denies dysuria, pyuria, hematuria, frequency, incontinence MS: Knee pain better with surgery Neuro: Denies seizures, strokes, loss of consciousness, dysesthesias or paresthesias, syn cope, concussions. Psych: Depression and anxiety. She denies PTSD issues Endocrine: Denies heat or cold intolerance Heme: Denies easy bruising or prolonged bleeding. No history of transfusions Allergic/Immunologic: Mild seasonal allergies PE: BP 118/66 | Pulse 88 | Resp 14 | Ht 1.588 m (5' 2.5") | Wt 96.707 kg (213 lb 3.2 oz) | BMI 38.35 kg/m2 | SpO2 99% Gen: obese, healthy, alert and not in acute distress HEENT:Head: Normocephalic, no lesions, without obvious abnormality. Eye: Normal external eye, conjunctiva, lids cornea, MELBA. Nose: Normal external nose, mucus membranes and septum. Pharynx: Dental Hygiene adequate. Normal buccal mucosa. Mallampati 3-4. Neck / Thyroid: Supple, no masses, nodes, nodules or enlargement. Pulm: lungs clear to auscultation Card: regular rate and rhythm, S1, S2 normal, no murmur, click, rub or gallop GI: soft and normal bowel sounds : Not examined Rectal: Not Examined Ext: peripheral pulses normal, no pedal edema, no clubbing or cyanosis. Knee not examined. Skin:no rashes Neuro:Grossly normal Psych:age appropriate and casually dressedoriented to time, place and person, mood and aff ect are within normal limits, pt is a good historian; no memory problems were noted Heme: No cervical LN Questionnaires Review: The score of 11 on the [place] Sleepiness scale suggests moderately severe recognized excessive daytime sleepiness. The score of 10 on the Insomnia Severity Sca le suggests that the patient has mild to moderate dissatisfaction with the quality of sleep. The score of 4 on the Cherry Depression Inventory is consistent with minimal, if any, depres brittnee. The score of 8 on the Cherry Anxiety Inventory suggests minimal recognized anxiety. The SF36v2 suggests moderate recognized impairment in Role Physical, Body Pain, Social Function, and Role Emotional subscales. Assessment: JAIRO: I suspect that the patient has clinically significant JAIRO. I have discusse d in detail the pathophysiology of Obstructive Sleep Apnea with the patient. I've discussed that during NREM sleep the skeletal muscles relax and in REM sleep the skeletal muscles are paralyzed. The muscles that support the back of the throat (the tongue in particular) also r elax during NREM sleep and are paralyzed in REM sleep and when this occurs, the back of the throat collapses some. In some patients with a smaller back of the throat, this can result i n obstruction to the flow of air. This is fundamentally what occurs in JAIRO. This can cause r epetitive obstruction to the flow of air all night long cause a person with JAIRO to awaken re peatedly at night to "open" the back of the throat. If airflow is significantly restricted, blood oxygen levels can fall. The combination of the repetitive awakenings at night and low oxygen levels lead to numerous other physiologic abnormalities which can result in nocturia, nocturnal heartburn, night sweats, morning dry mouth, morning headache, and daytime fatigue /sleepiness. Additionally, JAIRO can cause hypertension and it dramatically increases the risk of heart disease, heart attack, and stroke. It may play a causative role in obesity and AOD M. Untreated JAIRO also dramatically increases the risk of fall asleep car accidents. Treatmen t can help with all of these issues. The various forms of treatment of JAIRO were discussed wi th the patient including 1) Conservative therapy which typically includes weight loss, avoid ance of sleep deprivation, avoidance of alcohol, avoidance of sedative medications, avoidanc e of smoking, and positional therapy (non-supine sleeping); 2) Positive Airway Pressure ther apy (which is effective in the vast majority of patients but compliance can be an issue); 3) Dental Appliance Therapy (which is effective for some patients, typically with mild JAIRO, bu t compliance is typically good); 4) Expiratory Positive Airway Pressure - which involves pas sively increasing EPAP pressures applying a "one-way" valve type device (that looks like a " bandaid") over the nares at night which can be effective for very mild JAIRO; and 5) Surgical intervention - including Phase I surgery (which typically involves T&A, UPPP, Genioglossus A dvancement, Hyoid Suspension) and Phase II surgery (Bimandibular-Maxillary Facial Advancemen t). The surgical solution to JAIRO is complicated and typically involves several operations. I am advising PSG using a split-night protocol and she is in agreement. AODM: Treating JAIRO, if present, can help improve diabetic control too. HBP: Treating JAIRO, if present, can improve BP control too. Obesity: I've discussed the bidirectional relationship between JAIRO and obesity also. Weig ht loss could help with JAIRO, AODM, as well as HBP. DJD: Clinically she seems to be doing well after having had her left knee replaced. Plan: PSG utilizing a split-night technique with f/u thereafter. Patient Active Problem List Diagnosis Obesity JAIRO (obstructive sleep apnea) Positive PPD Diabetes type 2, controlled HBP (high blood pressure) DJD (degenerative joint disease) Loss of hearing Depression Hypercholesterolemia Today, 60 minutes was spent face to face with the patient; the majority of time was spent c ounseling regarding JAIRO. imon, Dann Borges Jr., MD - 11/01/2014 8:47 AM PSTFormatting of this note might be different from the origin al. 11/01/14 0800 Cherry Depression Inventory-II Depression Score 4 - Minimal depression Insomnia Severity Index Insomnia Severity Index 10 Ven[place] Sleepiness Scale Sitting and reading 2 Watching TV 1 Sitting, inactive in a public place (e.g. a theatre or a meeting) 1 As a passenger in a car for an hour without a break 3 Lying down to rest in the afternoon when circumstances permit 3 Sitting and talking to someone 0 Sitting quietly after a lunch without alcohol 1 In a car, while stopped for a few minutes in traffic 0 Total score 11 SF-36v2 Score PF 50.72 RP 37.26 BP 37.18 GH 55.32 VT 48.97 SF 40.49 RE 36.44 MH 50.01 PCS 45.73 MCS 43.89 documented in t his encounter Plan of Treatment + + +--------+ + + | Name | Type | Priori | Associated Diagnoses | Order Schedule | | | | ty | | | + + +--------+ + + | Ambulatory Referral | Outpatient | Routin | JAIRO (obstructive | Ordered: 11/01/2014 | | to Sleep Studies | Referral | e | sleep apnea) | | | | | | Diabetes type 2, | | | | | | controlled ([facility]) | | | | | | Essential | | | | | | hypertension | | + + +--------+ + + documented as of this encounter Visit Diagnoses + + | Diagnosis | + + | JAIRO (obstructive sleep apnea) - Primary Obstructive sleep apnea (adult) (pediatric) | + + | Diabetes type 2, controlled ([facility]) Type II or unspecified type diabetes mellitus | | without mention of complication, not stated as uncontrolled | + + | Essential hypertension Unspecified essential hypertension | + + | Obesity Obesity, unspecified | + + documented in this encounter
--- OUTSIDE RECORDS SUMMARY | ~2019-09-15 | XMS | Encounter Summary ---
Demographics + + + | Address | [address] | | | [place] [address] | + + + | Home Phone | | + + + | Preferred Language | Unknown | + + + | Marital Status | Single | + + + | Bahai Affiliation | Unknown | + + + | Race | White | + + + | Ethnic Group | Not or | + + + Author + + + | Author | [facility] | + + + | Organization | [facility] | + + + | Address | Unknown | + + + | Phone | Unavailable | + + + Support + + +---------+ + | Name | Relationship | Address | Phone | + + +---------+ + | Veronica Enciso | ECON | Unknown | | + + +---------+ + Care Team Providers + +------+ + | Care Fire Protection Designer Name | Role | Phone | + +------+ + | Jesica Prasanth | PCP | | + +------+ + Encounter Details +--------+ + + + + | Date | Type | Department | Care Team | Description | +--------+ + + + + | 08/25/ | Hospital | Registration [facility] | | | | 2019 | Encounter | [address] | | | | | | [place], | | | | | | [place] [address] | | | +--------+ + + + + Social History + +-------+ +--------+------+ | Tobacco Use | Types | Packs/Day | Years | Date | | | | | Used | | + +-------+ +--------+------+ | Never Assessed | | | | | + +-------+ +--------+------+ + + + | Sex Assigned at [...]
--- OUTSIDE RECORDS SUMMARY | ~2019-09-15 | XMS | Encounter Summary ---
Demographics + + + | Address | [address] [place] [address] | | | [place] [address] | + + + | Home Phone | | + + + | Preferred Language | Unknown | + + + | Marital Status | | + + + | Restorationism Affiliation | Unknown | + + + | Race | Unknown | + + + | Ethnic Group | Unknown | + + + Author + + + | Author | [facility] | | | and [place] | + + + | Organization | [facility] | | | and [place] | + + + | Address | Unknown | + + + | Phone | Unavailable | + + + Support + + + + + | Name | Relationship | Address | Phone | + + + + + | Neymar Burt | ECON | [address] | | | | | , [address] | | + + + + + Care Team Providers + +------+ + | Care Flight Teacher Name | Role | Phone | + [...] Medicine | JAIRO | Dann Borges | [address] | | | Required | | (obstructive | MD [address] | [place] | | | | | sleep | [place] | [place], | | | | | apnea) | [place] | [place] [address] | | | | | Diabetes | [facility] [place] | Phone: | | | | | type 2, | [address] | [phone] | | | | | controlled | Phone: | Fax: | | | | | (HCC) | [phone] | [phone] | | | | | Essential | Fax: | | | | | | hypertension | [phone] | | | | | | Procedures | | | | | | | DC POLYSOM | | | | | | [...] + + | 11/07/ | Hospital | [facility] | Dann Alcocer | Type II or | | 2014 | Encounter | MED CTR SLEEP | [address] [place] | unspecified type | | | | CENTER [address] | [place] [facility] | diabetes mellitus | | | | [place], [place] | [place] [address] | without mention of | | | | [address] | [phone] | complication, not | | | | [phone] | | stated as | | | [...]
--- OUTSIDE RECORDS SUMMARY | ~2019-09-15 | XMS | Encounter Summary ---
Demographics + + + | Address | [address] [place] [address] | | | [place] [address] | + + + | Home Phone | | + + + | Preferred Language | Unknown | + + + | Marital Status | | + + + | Restorationism Affiliation | Unknown | + + + | Race | Unknown | + + + | Ethnic Group | Unknown | + + + Author + + + | Author | [facility] | | | and [place] | + + + | Organization | [facility] | | | [...] ST | | | | | , [address] | | + + + + + Care Team Providers + +------+ + | Care Paper Pattern Folder Name | Role | Phone | + [...] + + | 01/29/ | Office | [facility] | Lang Hernandez PA | JAIRO on CPAP (Primary | | 2015 | Visit | SLEEP DISORDER [address] | [address] | Dx) | | | | [address] [place] | [place], [place] | | | | | [place] [address] | [address] | | | | | [phone] | | | +--------+---------+ + + + [...] + + + | Blood Pressure | 130/72 | 01/29/2015 2:20 PM | | | | | PDT | | + + + + + | Pulse | 96 | 01/29/2015 2:20 PM | | | | | PDT | | + + + + + | Temperature | - | - | | + + + + + | Respiratory Rate | 14 | 01/29/2015 2:20 PM | | | | | PDT | | + + + + + | Oxygen Saturation | 97% | 01/29/2015 2:20 PM | | | | | PDT | | + + + + + | Inhaled Oxygen | - | - | | | Concentration | | | | + + + + + | Weight | 98.5 kg (217 lb 1.6 | 01/29/2015 2:20 PM | | | | oz) | PDT | | + + + + + | Height | - | - | | + + + + + | Body Mass Index | 39.08 | 11/01/2014 9:08 AM | | | | | PST | | + + + + + documented in this encounter Progress Notes Park Patterson, Master of Arts - 01/29/2015 2:14 PM PDTFormatting of this note might be di fferent from the original. 01/29/15 1400 Cherry Depression Inventory-II Depression Score 7 - Minimal depression Insomnia Severity Index Insomnia Severity Index 1 [place] Sleepiness Scale Sitting and reading 0 Watching TV 1 Sitting, inactive in a [...] few minutes in traffic 0 Total score 3 SF-36v2 Score PF 48.61 RP 44.61 BP 57.89 GH 55.32 VT 52.09 SF 51.4 RE 28.67 MH 52.82 PCS 54.88 MCS 43.11 Lang Chowdhury PA - 1:49 PM PDT Subjective: Patient ID: Corina Garcia is a 70 y.o. female. HPI last office visit was: 12/13/2014 date of polysomnography: 11/07/2014 AHI: 17.6 RDI: 17.6 O2%: 81% with 36.9 minutes below 88% Machine type: ResMed AirSense 10 with nasal pillows/nasal mask obtained from: [facility] in [place] pressure: 5-20 cm Median: 11.8 cm 95%: 13.1 cm maximum: 13.6 cm Nights using CPAP: 46/47 % of nights >4 hours: 85% average usage (all nights): 5:28 average usage (nights used): 5:36 AHI: 4.1 "Amina" comes in for CPAP compliance. She continues to wear her CPAP nightly for the dura tion of her sleep. She feels that she is sleeping better and does not consider sleeping wit hout it. She does not have any questions or concerns. We discussed when she is able to rep lace her equipment. We also discussed the recommended cleaning schedule for her equipment. I have discussed the download and results of the paperwork in detail. She is unchanged or improved in nearly all categories, with no areas of concern. The download shows that her sl eep apnea is well controlled, with an AHI of 4.1. It also shows that her leaks are well con trolled. It shows that she is wearing her CPAP >4 hours for 85% of the nights during the 47 nights. Review of Systems Objective: Physical Exam Assessment: Problem #1: OBSTRUCTIVE SLEEP APNEA (327.23) This is well controlled with CPAP. Her compliance is going very well. She is wearing her CPAP >4 hours for 85% of the nights during the last 47 nights. Plan: She is to continue with CPAP indefinitely. We have faxed a prescription to [facility] in [place] to convert her CPAP/BiPAP to purchase. I will follow up again in 1 year, sooner prn. At that time we will reassess with all appro priate paperwork. Fifteen minutes were spent [id number]-[id number], with the majority of time spent in counseling. Lang Hernandez PA-C cc: Jasson Florian MD documented in this enco unter Plan of Treatment Not on filedocumented as of this encounter Visit Diagnoses + + | Diagnosis | + + | JAIRO on CPAP - Primary Obstructive sleep apnea (adult) (pediatric) | + + documented in this encounter
--- OUTSIDE RECORDS SUMMARY | ~2019-09-15 | XMS | Encounter Summary ---
Demographics + + + | Address | [address] [place] [address] | | | [place] [address] | + + + | Home Phone | | + + + | Preferred Language | Unknown | + + + | Marital Status | | + + + | Religion Affiliation | Unknown | + + + | Race | Unknown | + + + | Ethnic Group | Unknown | + + + Author + + + | Author | [facility] | | | and [place] | + + + | Organization | [facility] | | [...] ST | | | | | , [address] | | + + + + + Care Team Providers + +------+ + | Care Advertising Campaign Manager Name | Role | Phone | + +------+ + PCP | Unavailable | + +------+ + Encounter Details +--------+ + + + + | Date | Type | Department | Care Team | Description | +--------+ + + + + | 06/30/ | Hospital | [facility] | Jasson Florian MD | | | 2009 | Encounter | MED CTR XRAY [address] | [address] | | | | | [place] | [place], [place] | | | | | [place] [address] | [address] | | | | | [phone] | | | +--------+ + + + [...]
--- OUTSIDE RECORDS SUMMARY | ~2019-09-15 | XMS | Encounter Summary ---
Demographics + + + | Address | [address] [place] [address] | | | [place] [address] | + + + | Home Phone | | + + + | Preferred Language | Unknown | + + + | Marital Status | | + + + | Adventism Affiliation | Unknown | + + + | Race | Unknown | + + + | Ethnic Group | Unknown | + + + Author + + + | Author | [facility] | | | and [place] | + + + | Organization | [facility] | | | [...] ST | | | | | , [address] | | + + + + + Care Team Providers + +------+ + | Care Cafeteria Supervisor Name | Role | Phone | + +------+ + PCP | Unavailable | + +------+ + Encounter Details +--------+ + + + + | Date | Type | Department | Care Team | Description | +--------+ + + + + | 06/30/ | Hospital | [facility] | Jasson Florian MD | | | 2009 | Encounter | MED CTR XRAY [address] | [address] | | | | | [place] | [place], [place] | | | | | [place] [address] | [address] | | | | | [phone] | | | +--------+ + + + [...]
--- OUTSIDE RECORDS SUMMARY | ~2019-09-15 | XMS | Encounter Summary ---
Demographics + + + | Address | [address] [place] [address] | | | [place] [address] | + + + | Home Phone | | + + + | Preferred Language | Unknown | + + + | Marital Status | | + + + | Scientologist Affiliation | Unknown | + + + | Race | Unknown | + + + | Ethnic Group | Unknown | + + + Author + + + | Author | [facility] | | | and [place] | + + + | Organization | [facility] | | | [...] ST | | | | | , [address] | | + + + + + Care Team Providers + +------+ + | Care Retention Manager Name | Role | Phone | + +------+ + | Jasson Florian MD | PCP | | + +------+ + Reason for Visit +--------+ + | Reason | Comments | +--------+ + | Other | | +--------+ + Encounter Details +--------+ + + + + | Date | Type | Department | Care Team | Description | +--------+ + + + + | 02/16/ | Telephone | [facility] | Lang Hernandez PA | Other | | 2015 | | SLEEP DISORDER [address] | [address] | | | | | [address] [place] | [place], [place] | | | | | [place] [address] | [address] | | | | | [phone] | | | +--------+ + + + [...]
--- OUTSIDE RECORDS SUMMARY | ~2019-09-15 | XMS | Encounter Summary ---
Demographics + + + | Address | [address] [place] [address] | | | [place] [address] | + + + | Home Phone | | + + + | Preferred Language | Unknown | + + + | Marital Status | | + + + | Nondenominational Affiliation | Unknown | + + + | Race | Unknown | + + + | Ethnic Group | Unknown | + + + Author + + + | Author | [facility] | | | and [place] | + + + | Organization | [facility] | | | [...] ST | | | | | , [address] | | + + + + + Care Team Providers + +------+ + | Care Cleaner Carpet And Upholstery Name | Role | Phone | + +------+ + | Prasanth Mooney DO | PCP | | + +------+ + Reason for Visit + + + | Reason | Comments | + + + | Referral | schedule from referral sent 07/07 | + + + Encounter Details +--------+ + + + + | Date | Type | Department | Care Team | Description | +--------+ + + + + | 08/09/ | Telephone | [facility] | Cherelle Tavares, | Referral (schedule | | 2019 | | NEUROLOGY [address] | from referral sent | | | | [address] | [address] | 07/07) | | | | [place], [place] | [place] [address] | | | | | [address] | [phone] | | | | | [phone] | | | +--------+ + + + [...]
--- OUTSIDE RECORDS SUMMARY | ~2019-09-15 | XMS | Encounter Summary ---
Demographics + + + | Address | [address] | | | [place] [address] | + + + | Home Phone | | + + + | Preferred Language | Unknown | + + + | Marital Status | Single | + + + | Hindu Affiliation | Unknown | + + + | Race | White | + + + | Ethnic Group | Not or | + + + Author + + + | Author | [facility] | + + + | Organization | [facility] | + + + | Address | Unknown | + + + | Phone | Unavailable | + + + Support + + +---------+ + | Name | Relationship | Address | Phone | + + +---------+ + | Veronica Enciso | ECON | Unknown | | + + +---------+ + Care Team Providers + +------+ + | Care Cloth Finisher Name | Role | Phone | + +------+ + | Jesica Prasanth | PCP | | + +------+ + Reason for Visit + + + | Reason | Comments | + + + | New patient | | | consultation | | + + + | MRI Results | | + + + Intake Referral (Routine) + +--------+ + + + + | Status | Reason | Specialty | Diagnoses / | Referred By | Referred To | | | | | Procedures | Contact | Contact | + +--------+ + + + + | Authorized | | Endocrinology | Diagnoses | | [place], | | | | , Diabetes & | Benign | Diandragaljanae, | Sally Paredes MD | | | | Metabolism / | neoplasm of | Peggy K, | [address] [facility] | | | | Neurological | pituitary | [place] [address] | [facility] | | | | Surgery | gland | [address] | [address] [place], | | | | | Procedures | [place], | [place] | | | | | [place] | [place] [address] | [address] | | | | | PATIENT | Phone: | Phone: | | | | | [address] [address] [place] | [phone] | [phone] | | | | | EST PATIENT | Fax: | Fax: | | | | | [place] | [phone] | [phone] | | | | | THR/PRPH/DX | | | | | | | INJ,IV PSH | | | | | | | AR INJ | | | | | | | COSYNTROPIN | | | | | | | PER 0.25MG | | | + +--------+ + + + + Encounter Details +--------+---------+ + + + | Date | Type | Department | Care Team | Description | +--------+---------+ + + + | 09/08/ | Office | Neurosurgery at | Sally Casey V, | Pituitary lesion | | 2019 | Visit | [facility] [address] | [address] | (HCC) (Primary Dx) | | | | Ave Mailcode: CH8N | [facility] | | | | | [facility] | [place], [place] | | | | | and Healing, | [address] | | | | | Building [address] | [phone] | | | | | [place], [place] | | | | | | [address] | | | | | | [phone] | | | +--------+---------+ + + + [...] + documented in this encounter Progress Notes Sally Casey MD - 09/08/2019 2:15 PM PSTFormatting of this note might be different f rom the original. Pituitary Clinic -- New patient evaluation Referring Provider: FRANCO Martinez [address] [facility] [place] [address] Reason for visit: Evaluate a large pituitary lesion HPI/Review: Corina Garcia is a 74 y.o. female referred for evaluation of a large pitui tary lesion. She had this lesion identified radiographically during workup for her falls. S he has been falling for 6-8 months: tripped over a curb, dog pulled her twice, fell geeting out a car, in the shower. No LOC. No fractures. She also reports no arm stregths attributes to neck disk compression. No n/v. No BARBER, no vision change. No weight loss. No weight gain. N o dizz/lighheadedness. No low BP. No hx of cancer. She had colonoscopy a year ago. Reports that mammograms were normal. No hx of lung or skin cancer. No change in show or ring size, no jaw or teeth changes, no excessive sweating. No bruising or skin thinning. No excessive thirst or urination. MRI indicated lesion of sellar mass [id number] mm; "soft tissue extends down nalong the sphe nois sinus septum and measures 35l1d08 mm". No optic chiasm compression. Exact date of onset of symptoms is unknown. Old recordsere obtained and reviewed as part of this clinic visit. ROS: A full review of systems was performed using a patient questionnaire, and it was scann ed into the patient's chart. Pertinent positives are noted in HPI. See scanned sheet for the remainder of positives. Other systems were reviewed and were negative. Past Medical History: Diagnosis Date Diabetes (HCC) HTN (hypertension) There is no problem list on file for this patient. Family History Problem Relation Breast Cancer Mother Colon Cancer Father Patient denies family history of multiple endocrine neoplasia, familial pituitary adenomas, hypercalcemia, parathyroid, adrenal and pancreatic disease. Social History Socioeconomic History Marital status: Single Spouse name: Not on file Number of children: 2 Years of education: Not on file Highest education level: Not on file Occupational History Not on file Social Needs Financial resource strain: Not on file Food insecurity: Worry: Not on file Inability: Not on file Transportation needs: Medical: Not on file Non-medical: Not on file Tobacco Use Smoking status: Former Smoker Smokeless tobacco: Never Used Tobacco comment: quit 30 yrs ago Substance and Sexual Activity Alcohol use: Not Currently Drug use: Not Currently Sexual activity: Not on file Lifestyle Physical activity: Days per week: Not on file Minutes per session: Not on file Stress: Not on file Relationships Social connections: Talks on phone: Not on file Gets together: Not on file Attends scientologist service: Not on file Active member of club or organization: Not on file Attends meetings of clubs or organizations: Not on file Relationship status: Not on file Other Topics Concern Not on file Social History Narrative Not on file Current Medication List Name Sig FLUOXETINE 20 MG CAPSULE Take 20 mg by mouth once daily. GABAPENTIN 300 MG CAPSULE Take 300 mg by mouth two times daily. 1 in the am 2 in the pm LOVASTATIN 10 MG TABLET Take 10 mg by mouth once daily in the evening. Administer with even ing meal. METFORMIN ER 500 MG TABLET,EXTENDED RELEASE 24 HR Take 500 mg by mouth two times daily. Adm inister with evening meal. METOPROLOL SUCCINATE ER 100 MG TABLET,EXTENDED RELEASE 24 HR Take 100 mg by mouth once reymundo y. MONTELUKAST 10 MG TABLET Take 10 mg by mouth once daily. SPIRONOLACTONE 50 MG TABLET Take 50 mg by mouth once daily. Allergies Allergen Reactions Sulfa (Sulfonamide Antibiotics) Rash Physical Exam: Vitals: 09/08/19 1316 BP: 118/76 BP Location: Right upper arm Patient Position: Sitting Weight: 83.1 kg (183 lb 1.6 oz) Height: 1.6 m (5' 3") PainSc: 0 - Zero General Appearance: Pleasant, looks stated age, in no acute distress, well-nourished and we ll-developed. HEENT: Normocephalic and atraumatic. Pupils are equally responsive and reactive to light. E xtraocular movements intact. Visual cagle are normal to confrontation. Has normal cranial n erves in the rest of the exam. No acne, hirsutism, facial plethora, no facial rounding, fron octavio bossing, protruding jaw, or gaps between the teeth. Neck: No dorsocervical hump or supraclavicular fat filling. No lymphadenopathy. No abnormal ities in thyroid size and texture. Cardiovascular: Regular rate and rhythm. No rubs, murmurs, or gallops. No jugular venous di stension. Lungs: Normal respiratory effort. Clear to auscultation. No rhonchi, rales, or wheezes. Abdomen: Nontender. Nondistended. No organomegaly. No truncal obesity. No violaceous striae . Skin: No hyperpigmentation, was not dry, sweaty, or oily. No significant skin tags or acant hosis nigricans. No thinning of the skin or bruising. Extremities: Upper Extremities: No proximal muscle weakness. No hand enlargement. No tremor or brittle fingernails. Lower Extremities: No marked edema. Neurological: 5/5 motor and sensory throughout. Deep tendon reflexes are 2+ without delayed relaxation phase. Psychiatric: Alert and oriented to self, place and time. Normal mood, speech and affect. Labs: 08/25/19 Cortisol 16 PRL 9.2 IGF-1 171 (20-224) ACTH 12.45 MRI Assessment/Plan: Corina Garcia is a 74 y.o. female presents for evaluation of a large pituitary lesion. The lesion is not compressing optic chiasm. 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 Based on labs she has no pituitary deficiencies. This lesion is unlikely cancerous/metastatic giv en absence of compressive sxs, pituitary dysfunction and hx of cancer. Patient does not want surgery or biopsy. We can observe and repeat MRI in 3 months. She will discuss with NSG as well. Falls and arm weakness are very unlikely to be related to the pituitary lesion. Pituitary function: A. Adrenal gland function There are no obvious signs of adrenal insufficiency at this p oint. Random cortisol of 16 rules out AI. No sxs of Cushings. B. Thyroid function - Appears clinically euthyroid. We will check TFTs. C. Prolactin was normal. Will recheck to make sure no hook effect D. Growth hormone - was normal. E. Gonadal axis - postmenopausal . F. ADH - No symptoms of diabetes insipidus or SIADH. Increase fluid intake due to borderli ne high Na. We discussed at length management of pituitary adenoma, potential risk of growing over time and apoplexy, low risk of malignancy, timeline of follow-up and work-up for pituitary dysfu nction. Follow up: 3-6 mo with repeat mri to make sure lesion is not rapidly growing, PRODUCTION WEIGHER, nsg Sally Casey MD City Assessor Endocrinology and Metabolism documented in this encounter Plan of Treatment Not on filedocumented as of this encounter Results TSH (09/08/2019 4:19 PM [...] | + + + + + | [facility] | [address] | [place] [address] | | | SERVICES, CORE | [address] | | | + + + + + PROLACTIN (09/08/2019 4:19 PM PST) + +-------+ + + + | Component | Value | Ref Range | Performed | Pathologist | | | | | At | Signature | + +-------+ + + + | PROLACTIN | 7.5 | 2.8 - 26.0 | [facility] | | | | | ng/ml | LABORATORY | | | | | | SERVICES, | | | | | | CORE | | + +-------+ + + + + + | Specimen | + + | Blood - Blood | | (substance) | + + + + + | Narrative | Performed At | + + + | Test performed in [facility] Core lab. New reference range in effect | [facility] | | 2-6-18. | LABORATORY | | | SERVICES, CORE | + + + + + + + + | Performing | Address | City/State/Zipcode | Phone Number | | Organization | | | | + + + + + | [facility] | [address] | [place] [address] | | | SERVICES, CORE | [address] [...] + + + + + | [facility] | [address] | [place] [address] | | | SERVICES, CORE | [address] | | | + + + + + documented in this encounter Visit Diagnoses + + | Diagnosis | + + | Pituitary lesion (HCC) - Primary Unspecified disorder of the pituitary gland and its | | hypothalamic control | + + documented in this encounter
--- OUTSIDE RECORDS SUMMARY | ~2019-09-15 | XMS | Encounter Summary ---
Demographics + + + | Address | [address] [place] [address] | | | [place] [address] | + + + | Home Phone | | + + + | Preferred Language | Unknown | + + + | Marital Status | | + + + | Taoist Affiliation | Unknown | + + + | Race | Unknown | + + + | Ethnic Group | Unknown | + + + Author + + + | Author | [facility] | | | and [place] | + + + | Organization | [facility] | | | [...] ST | | | | | , [address] | | + + + + + Care Team Providers + +------+ + | Care Talent Development Analyst Name | Role | Phone | + [...] Medicine | JAIRO | Dann Borges | [place] [address] | | | Required | | (obstructive | MD Ber[address] | [place] | | | | | sleep | [place] | Jesse Molina, | | | | | apnea) | St [facility] | [place] [address] | | | | | Diabetes | [place], [place] | Phone: | | | | | type 2, | [address] | [phone] | | | | | controlled | Phone: | Fax: | | | | | (HCC) | [phone] | [phone] | | | | | Essential | Fax: | | | | | | hypertension | [phone] | | | | | | Procedures | | | | | | | AR POLYSOM | | | | | | [...] | Sleep | sleep apnea | ARMINDA [facility] IDALIA | MD [address] | | | | Medicine / | (adult) | [place] | [facility] | | | | Sleep | (pediatric) | [facility] | [facility] | | | | Medicine | consult | [place] [address] | [place], [place] | | | | | [phone] | Phone: | [phone] Phone: | | | | | Procedures | [phone] | [phone] | | | | | NEW PATIENT | Fax: | Fax: | | | | | | [phone] | [phone] | +--------+--------+ + + + + Encounter Details +--------+---------+ + + + | Date | Type | Department | Care Team | Description | +--------+---------+ + + + | 11/01/ | Office | [facility] | Dann Alcocer | JAIRO (obstructive | | 2015 | Visit | SLEEP DISORDER [address] | MD [address] | sleep apnea) | | | | [address] [place] | [address] [place] | (Primary Dx); | | | | [place] [address] | [place] [address] | Diabetes type 2, | | | | [phone] | [phone] | controlled (HCC); | | | | [...] Alcocer Jr., MD - 11/01/2014 10:[address] [facility] What Are Snoring and Sleep Apnea? If [...] night, making your sleep fragmented with a motel clerk stage of sleep. Even t neisha you do not remember waking up many times during the night to a motel clerk sleep, you feel tired the next day. [...] block the airway when you re asleep. 7827-5776 [employer]. [address] [place] [address], [place] [address]. All righ ts reserved. This information is [...] In the morning, you return the computer. 3448-3457 [employer]. [address] [place] [address]. All righ ts reserved. This information is [...] you will have a private bedroom. A composite technician dulce l attach many sensors to your body, then go into another room. As you sleep, your heart rate , breathing, oxygen level, brain activity, and other functions will be tracked. A microphone and video camera will record your breathing sounds and body movements. The composite technician will keep watch nearby. If you [...] may be the right ones for you. 9422-0524 [employer]. [address] [place] [address]. All righ ts reserved. This information is not intended as a substitute for professional medical care. Always follow your healthcare professional's instructions. documented in this encounter Progress Notes Dann Alcocer Jr., MD - 11/01/2014 9:20 AM PSTFormatting of this note might be differen t from the original. 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 [facility] hearing aids Card:Denies exertional substernal chest [...] Review: The score of 11 on the R[place] Sleepiness scale suggests moderately severe recognized excessive [...] Insomnia Severity Index Insomnia Severity Index 10 [place] Sleepiness Scale Sitting and reading 2 Watching [...] | | | | | | controlled ([facility]) | | | | | | Essential | | | | | | hypertension | | + + +--------+ + + documented as of this encounter Visit Diagnoses + + | Diagnosis | + + | JAIRO (obstructive sleep apnea) - Primary Obstructive sleep apnea (adult) (pediatric) | + + | Diabetes type 2, controlled ([facility]) Type II or unspecified type diabetes mellitus | | without mention of complication, not stated as uncontrolled | + + | Essential hypertension Unspecified essential hypertension | + + | Obesity Obesity, unspecified | + + documented in this encounter
--- OUTSIDE RECORDS SUMMARY | ~2019-09-15 | XMS | Encounter Summary ---
Demographics + + + | Address | [address] [place] [address] | | | [place] [address] | + + + | Home Phone | | + + + | Preferred Language | Unknown | + + + | Marital Status | | + + + | Mosque Affiliation | Unknown | + + + [...] ST | | | | | , [address] | | + + + + + Care Team Providers + +------+ + | Care Cake Stripper Name | Role | Phone | + +------+ + | Jasson Florian MD | PCP | | + +------+ + Reason for Visit +--------+ + | Reason | Comments | +--------+ + | Apnea | | +--------+ + Encounter Details +--------+---------+ + + + | Date | Type | Department | Care Team | Description | +--------+---------+ + + + | 12/13/ | Office | [facility] | Lang Hernandez PA | JAIRO on CPAP (Primary | | 2015 | Visit | SLEEP DISORDER [address] | [address] | Dx) | | | | [address] [place] | [place], [place] | | | | | [place] [address] | [address] | | | | | [phone] | | | +--------+---------+ + + + [...] + + + | Blood Pressure | 118/68 | 12/13/2014 2:12 PM | | | | | PDT | | + + + + + | Pulse | 93 | 12/13/2014 2:12 PM | | | | | PDT | | + + + + + | Temperature | - | - | | + + + + + | Respiratory Rate | 14 | 12/13/2014 2:12 PM | | | | | PDT | | + + + + + | Oxygen Saturation | 98% | 12/13/2014 2:12 PM | | | | | PDT | | + + + + + | Inhaled Oxygen | - | - | | | Concentration | | | | + + + + + | Weight | 99.9 kg (220 lb 3.2 | 12/13/2014 2:12 PM | | | | oz) | PDT | | + + + + + | Height | - | - | | + + + + + | Body Mass Index | 39.63 | 11/01/2014 9:08 AM | | | | | PST | | + + + + + documented in this encounter Progress Notes Lang Hernandez PA - 12/13/2014 2:09 PM PDT Subjective: Patient ID: Corina Garcia is a 69 y.o. female. HPI last office visit was: 11/29/2014 date of polysomnography: 11/07/2014 AHI: 17.6 RDI: 17.6 O2%: 81% with 36.9 minutes below 88% Machine type: ResMed AirSense 10 with nasal pillows/nasal mask obtained from: [employer] [place] pressure: 5-20 cm Median: 11.4 cm 95%: 13.0 cm maximum: 13.6 cm Nights using CPAP: 12/04 14/ % of nights >4 hours: 33% 100% average usage (all nights): 3:07 6:14 average usage (nights used): 3:07 6:14 AHI: 10.3 3.7 Corina comes in for CPAP compliance. She continues to wear her CPAP nightly, but is now w earing it for the duration of her sleep. She has quickly adjusted to wearing her CPAP. She feels that she is sleeping better and does not consider sleeping without it. She has darling ed from her nasal pillows to a nasal mask and feels that this is more comfortable for her. I have discussed the download in detail. This shows that her sleep apnea is controlled, wi th an AHI of 3.7. It also shows that her leaks are somewhat controlled. Review of Systems Objective: Physical Exam Assessment: Problem #1: OBSTRUCTIVE SLEEP APNEA (327.23) This is well controlled with CPAP. Her compliance is going very well. Plan: She is to continue with CPAP indefinitely. She is to continue to work toward wearing her C PAP 100% of the time she is asleep. I will follow up again in 6 weeks, sooner prn. At that time we will reassess with all appr opriate paperwork. Fifteen minutes were spent [id number], with the majority of time spent in [...]
--- OUTSIDE RECORDS SUMMARY | ~2019-09-15 | XMS | Encounter Summary ---
Demographics + + + | Address | [address] [place] [address] | | | [place] [address] | + + + | Home Phone | | + + + | Preferred Language | Unknown | + + + | Marital Status | | + + + | Faith Affiliation | Unknown | + + + | Race | Unknown | + + + | Ethnic Group | Unknown | + + + Author + + + | Author | [facility] | | | and [place] | + + + | Organization | [facility] | | | [...] ST | | | | | , [address] | | + + + + + Care Team Providers + +------+ + | Care Sterile Processing Tech Name | Role | Phone | + [...] Description | +--------+---------+ + + + | 06/24/ | Office | [facility] | Lang Hernandez PA | JAIRO on CPAP (Primary | | 2016 | Visit | SLEEP DISORDER [address] | [address] | Dx) | | | | [address] [place] | [place] | | | | | [place] [address] | [address] | | | | | [phone] | | | +--------+---------+ + + + [...] + + + | Blood Pressure | 110/78 | 06/24/2016 2:22 PM | | | | | PDT | | + + + + + | Pulse | 76 | 06/24/2016 2:22 PM | | | | | PDT | | + + + + + | Temperature | - | - | | + + + + + | Respiratory Rate | 16 | 06/24/2016 2:22 PM | | | | | PDT | | + + + + + | Oxygen Saturation | 98% | 06/24/2016 2:22 PM | | | | | PDT | | + + + + + | Inhaled Oxygen | - | - | | | Concentration | | | | + + + + + | Weight | 96.1 kg (211 lb 12.8 | 06/24/2016 2:22 PM | | | | oz) | PDT | | + + + + + | Height | - | - | | + + + + + | Body Mass Index | 38.12 | 11/01/2014 9:08 AM | | | | | PST | | + + + + + documented in this encounter Progress Notes Lang Hernandez PA - 06/24/2016 2:28 PM PDT Subjective: Patient ID: Corina Garcia is a 71 y.o. female. HPI last office visit was: 01/30/2016 date of polysomnography: 11/07/2014 AHI: 17.6 RDI: 17.6 O2%: 81% with 36.9 minutes below 88% Machine type: ResMed AirSense 10 with nasal pillows/nasal mask obtained from: [employer] [facility] [place] pressure: 5-20 cm Median: 11.6 cm 95%: 12.7 cm maximum: 13.2 cm Nights using CPAP: 46/47 150/365 116/120 % of nights >4 hours: 85% 37% 80% average usage (all nights): 5:28 2:26 5:10 average usage (nights used): 5:36 5:56 AHI: 41.4 "Amina" comes in for CPAP compliance. At her last appointment she had lost weight and nereida t using her CPAP. Nocturnal pulse oxymetry on room air without CPAP showed that she continu ed to have significant oxygen desaturation. She returned to wearing her CPAP and has done r eally well. She was hopeful that she wouldn't need CPAP, but was not surprised that she did . Starting back on her CPAP, she has noticed that she is sleeping better and feels more res david with more energy during the day. She has some nights that she takes off her mask for th e last 1-2 hours and sleeps without it, but this is not very often. If she sleeps without i t for too long she does not feel rested in the morning or the following day. She has come t o the realization that she needs her CPAP and she is okay with that. She does not have any questions or concerns. I have discussed the download and results of the paperwork in detail. The download shows t hat her sleep apnea is well controlled, with an AHI of 1.4. It also shows that her leaks ar e well controlled. BP 110/78 mmHg | Pulse 76 | Resp 16 | Wt 96.072 kg (211 lb 12.8 oz) | SpO2 98% Review of Systems Objective: Physical Exam Assessment: Problem #1: OBSTRUCTIVE SLEEP APNEA (UML51-A67.33) This is well controlled with CPAP. Nocturnal pulse oxymetry on room air without CPAP showed that she continued to have significant oxygen desaturation. She is doing well with her com pliance since she received these results and feels that she is sleeping better with her CPAP . Plan: 1. She is to continue with CPAP indefinitely. 2. Touch base with medical supplier twice per year to ensure that all equipment is satisfa ctory. I will follow up again in 1 year, sooner prn. At that time we will reassess with all appro priate paperwork. Fifteen minutes were spent [id number], with the majority of time spent in [...]
--- OUTSIDE RECORDS SUMMARY | ~2019-09-15 | XMS | Encounter Summary ---
Demographics + + + | Address | [address] [place] [address] | | | [place] [address] | + + + | Home Phone | | + + + | Preferred Language | Unknown | + + + | Marital Status | | + + + | Congregational Affiliation | Unknown | + + + | Race | Unknown | + + + | Ethnic Group | Unknown | + + + Author + + + | Author | [facility] | | | and [place] | + + + | Organization | [facility] | | | [...] ST | | | | | , [address] | | + + + + + Care Team Providers + +------+ + | Care Seed Laboratory Assistant Name | Role | Phone | + [...] + | 01/29/ | Office | [facility] | Lang Hernandez PA | JAIRO on CPAP (Primary | | 2015 | Visit | SLEEP DISORDER [address] | [address] | Dx) | | | | [address] [place] | [place], [place] | | | | | [place] [address] | [address] | | | | | [phone] | | | +--------+---------+ + + + [...] Insomnia Severity Index Insomnia Severity Index 1 [place] Sleepiness Scale Sitting and reading 0 Watching [...] 10 with nasal pillows/nasal mask obtained from: [employer] in [place] pressure: 5-20 cm Median: 11.8 cm 95%: [...] indefinitely. We have faxed a prescription to [place] in [place] to convert her CPAP/BiPAP to purchase. I will follow up again in 1 year, sooner prn. At that time we will reassess with all appro priate paperwork. Fifteen minutes were spent [id number], with the majority of time spent in [...]
--- OUTSIDE RECORDS SUMMARY | ~2019-09-15 | XMS | Encounter Summary ---
Demographics + + + | Address | [address] | | | [place] [address] | + + + | Home Phone | | + + + | Preferred Language | Unknown | + + + | Marital Status | Single | + + + | Zoroastrian Affiliation | Unknown | + + + | Race | White | + + + | Ethnic Group | Not or | + + + Author + + + | Organization | Unknown | + + + | Address | Unknown | + + + | Phone | Unavailable | + + + Support + + +---------+ + | Name | Relationship | Address | Phone | + + +---------+ + | Veronica Enciso | ECON | Unknown | | + + +---------+ + Care Team Providers + +------+ + | Care Funeral Attendant Name | Role | Phone | + +------+ + | Prasanth Mooney DO | PCP | | + +------+ + Encounter Details +--------+--------+ + + + | Date | Type | Department | Care Team | Description | +--------+--------+ + + + | 09/08/ | Travel | | | | | 2019 | | | | | +--------+--------+ + + + Social History + +-------+ [...]
--- OUTSIDE RECORDS SUMMARY | ~2019-09-15 | XMS | Clinical Summary ---
Demographics + + + | Address | [address] | | | [place] [address] | + + + | Home Phone | | + + + | Preferred Language | Unknown | + + + | Marital Status | Single | + + + | Worship Affiliation | Unknown | + + + [...] Team Providers + +------+ + | Care Subway Guard Name | Role | Phone | + +------+ + | Jesica Prasanth | PCP | | + +------+ + Source Comments [facility]ISI is fully live on both [facility] and [facility] InPatient.[facility] Allergies + + + + + [...] 2018 | Visit | | MD | ([facility]) (Primary Dx) | +--------+ + [...] | + + + + + | [facility] | [address] | [place] [address] | | | SERVICES, CORE | PARK [...] + + + | Test performed in [facility] lab. New reference range in effect | [facility] | | 2-6-18. | LABORATORY | | | SERVICES, CORE | + + + + + + + + | Performing | Address | City/State/Zipcode | Phone Number | | Organization | | | | + + + + + | [facility] | [address] | [place] [address] | | | SERVICES, [facility] | [address] | | | + [...] [facility] | [address] | [place] [address] | | | SERVICES, CORE | XIN [...] | | | | | | | [address] | | + +--------+ +--------+ + +--------+ [...] | | al/Jaskaran | | 1945 | [phone] | [place] | | | lorri | | | 2 (Home) | [address] | + +--------+ +--------+ + +
--- OUTSIDE RECORDS SUMMARY | ~2019-09-15 | XMS | Encounter Summary ---
Demographics + + + | Address | [address] | | | [place] [address] | + + + | Home Phone | | + + + | Preferred Language | Unknown | + + + | Marital Status | Single | + + + | Yarsanism Affiliation | Unknown | + + + | Race | White | + + + | Ethnic Group | Not or | + + + Author + + + | Author | [facility] | + + + | Organization | [facility] | + + + | Address | Unknown | + + + | Phone | Unavailable | + + + Support + + +---------+ + | Name | Relationship | Address | Phone | + + +---------+ + | Veronica Enciso | ECON | Unknown | | + + +---------+ + Care Team Providers + +------+ + | Care Belt Builder Name | Role | Phone | + [...] + + + | Authorized | | Neurological | Diagnoses | | [place], | | | | Surgery | 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, | 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, | [address] | | | | | pituitary | [place] [address] | [address] | | | | | gland | [address] | [place], [place] | | | | | Procedures | [place], | [address] | | | | | [place] | [place] [address] | Phone: | | | | | PATIENT | Phone: | [phone] | | | | | [place] | [phone] | Fax: | | | | | EST PATIENT | Fax: | [phone] | | | | | [place] | [phone] | | + +--------+ + + + + Encounter Details +--------+---------+ + + + | Date | Type | Department | Care Team | Description | +--------+---------+ + + + | 09/08/ | Office | Neurosurgery at | Alfonso Smith MD | | | 2019 | Visit | [place] [address] | [address] | | | | | Ave Mailcode: CH8N | [place], [place] | | | | | [facility] | [address] | | | | | and Abdiel, | [phone] | | | | | [facility] | | | | | | Floor [place], [place] | | | | | | [address] | | | | | | [phone] | | | +--------+---------+ + + + [...] | Blood Pressure | 118/76 | 09/08/2019 1:14 PM | | | | | PST [...] 83.1 kg (183 lb 1.6 | 09/08/2019 1:14 PM | | | | oz) | PST | | + + + + + | Height | 160 cm (5' 3") | 09/08/2019 1:14 PM | | | | | PST | | + + + + + | Body Mass Index | 32.43 | 09/08/2019 1:14 PM | | | | | PST | | + + + + + documented in this encounter Plan of Treatment Not on filedocumented as of this encounter Visit Diagnoses Not on filedocumented in this encounter
--- OUTSIDE RECORDS SUMMARY | ~2019-09-15 | XMS | Encounter Summary ---
Demographics + + + | Address | [address] [place] [address] | | | [place] [address] | + + + | Home Phone | | + + + | Preferred Language | Unknown | + + + | Marital Status | | + + + | Voodoo Affiliation | Unknown | + + + | Race | Unknown | + + + | Ethnic Group | Unknown | + + + Author + + + | Author | [facility] | | | and [place] | + + + | Organization | [facility] | | | and [place] | + + + | Address | Unknown | + + + | Phone | Unavailable | + + + Support + + + + + | Name | Relationship | Address | Phone | + + + + + | Neymar Burt | ECON | [address] | | | | | , [address] | | + + + + + Care Team Providers + +------+ + | Care Wagon Drill Operator Name | Role | Phone | [...] + + | 08/09/ | Telephone | [facility] | Apolinar Spangler DO | Referral (schedule | | 2019 | | NEUROSURGERY [address] | from referral sent | | | | [address] | [address] | 07/07) | | | | [place], [place] | [place] [address] | | | | | [address] | [phone] | | | | | [phone] | | | +--------+ + + + [...]
--- OUTSIDE RECORDS SUMMARY | ~2019-09-15 | XMS | Encounter Summary ---
Demographics + + + | Address | [address] | | | [place] [address] | + + + | Home Phone | | + + + | Preferred Language | Unknown | + + + | Marital Status | Single | + + + | Synagogue Affiliation | Unknown | + + + | Race | White | + + + | Ethnic Group | Not or | + + + Author + + + | Author | [facility] | + + + | Organization | [facility] | + + + | Address | Unknown | + + + | Phone | Unavailable | + + + Support + + +---------+ + | Name | Relationship | Address | Phone | + + +---------+ + | Veronica Enciso | ECON | Unknown | | + + +---------+ + Care Team Providers + +------+ + | Care Heel Stiffener Name | Role | Phone | + [...] of | Peggy K, | [address] [facility] | | | | Neurological | pituitary | [place] [address] | [facility] | | | | Surgery | gland | [address] | [address] [place], | | | | | Procedures | [place], | [place] | | | | | [place] | [place] [address] | [address] | | | | | PATIENT | Phone: | Phone: | | | | | [place] | [phone] | [phone] | | | | | EST PATIENT | Fax: | Fax: | | | | | [place] | [phone] | [phone] | | | | | THR/PRPH/DX | | | | | | | INJ,IV PSH | | | | | | | [place] INJ | | | | | | [...] lesion | | 2019 | Visit | [facility] [address] | [address] | (HCC) (Primary Dx) | | | | Ave Mailcode: CH8N | [facility] | | | | | [facility] | [place], [place] | | | | | and Healing, | [address] | | | | | Building [address] | [phone] | | | | | [place], [place] | | | | | | [address] | | | | | | [phone] | | | +--------+---------+ + + + [...] New patient evaluation Referring Provider: FRANCO Martinez [address] [facility] [place] [address] Reason for visit: Evaluate a large pituitary [...] urination. 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 No optic chiasm compression. Exact date [...] file Gets together: Not on file Attends restoration service: Not on file Active member of [...] make sure lesion is not rapidly growing, DIRECTOR OF MATERNITY SERVICES, nsg Sally Casey MD Outreach Coordinator Endocrinology and Metabolism documented in this encounter [...] | + + + + + | [facility] | [address] | [place] [address] | | | SERVICES, CORE | [address] | | | + + + + + PROLACTIN (09/08/2019 4:19 PM PST) + +-------+ + + + | Component | Value | Ref Range | Performed | Pathologist | | | | | At | Signature | + +-------+ + + + | PROLACTIN | 7.5 | 2.8 - 26.0 | [facility] | | | | | ng/ml | LABORATORY | | | | | | SERVICES, | | | | | | CORE | | + +-------+ + + + + + | Specimen | + + | Blood - Blood | | (substance) | + + + + + | Narrative | Performed At | + + + | Test performed in [facility] Core lab. New reference range in effect | [facility] | | 2-6-18. 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
--- OUTSIDE RECORDS SUMMARY | ~2019-09-15 | XMS | Encounter Summary ---
Demographics + + + | Address | [address] [place] [address] | | | [place] [address] | + + + | Home Phone | | + + + | Preferred Language | Unknown | + + + | Marital Status | | + + + | Presybeterian Affiliation | Unknown | + + + | Race | Unknown | + + + | Ethnic Group | Unknown | + + + Author + + + | Author | [facility] | | | and [place] | + + + | Organization | [facility] | | | [...] ST | | | | | , [address] | | + + + + + Care Team Providers + +------+ + | Care Scientific Specialist Name | Role | Phone | [...] Description | +--------+---------+ + + + | 08/23/ | Office | [facility] | Lang Henrandez PA | JAIRO on CPAP (Primary | | 2018 | Visit | SLEEP DISORDER 401 | [address] | Dx) | | | | [address] [place] | [place] | | | | | [place] [address] | [address] | | | | | [phone] | | | +--------+---------+ + + + [...] + + + | Blood Pressure | 134/76 | 08/23/2018 2:28 PM | | | | | PST | | + + + + + | Pulse | 80 | 08/23/2018 2:28 PM | | | | | PST | | + + + + + | Temperature | - | - | | + + + + + | Respiratory Rate | 16 | 08/23/2018 2:28 PM | | | | | PST | | + + + + + | Oxygen Saturation | 98% | 08/23/2018 2:28 PM | | | | | PST | | + + + + + | Inhaled Oxygen | - | - | | | Concentration | | | | + + + + + | Weight | 92.1 kg (203 lb 2.5 | 08/23/2018 2:28 PM | | | | oz) | PST | | + + + + + | Height | - | - | | + + + + + | Body Mass Index | 36.57 | 06/24/2017 1:56 PM | | | | | PDT | | + + + + + documented in this encounter Progress Notes Dia Mcgrath, Outbound Sales Executive - 08/23/2018 2:30 PM PSTFormatting of this note might b e different from the original. 08/23/18 1400 Cherry Depression Inventory-II Depression Score 3 - Minimal depression Insomnia Severity Index Insomnia Severity Index 0 Jackson Sleepiness Scale Sitting and reading 1 Watching TV 1 Sitting, inactive in a public place (e.g. a theatre or a meeting) 1 As a passenger in a car for an hour without a break 0 Lying down to rest in the afternoon when circumstances permit 0 Sitting and talking to someone 0 Sitting quietly after a lunch without alcohol 0 In a car, while stopped for a few minutes in traffic 0 Total score 3 SF-36v2 Score PF 47.97 RP 41.44 BP 53.93 GH 57.94 VT 49.63 SF 42.3 RE 35.28 MH 48.25 PCS 52.62 MCS 41.62 Lang Hernandez PA - 2:30 PM PST Subjective: Patient ID: Corina Garcia is a 73 y.o. female. HPI last office visit: 06/24/2017 date of polysomnography: 11/07/2014 AHI: 17.6 RDI: 17.6 O2%: 81% with 36.9 minutes below 88% Machine type: ResMed AirSense 10 Mask type: nasal mask DME: [employer] [facility] [place] pressure: 5-20 cm Median: 11.5 cm 95%: 13.5 cm maximum: 14.2 cm Nights using CPAP: 44/45 % of nights >4 hours: 93% average usage (all nights): 6:08 average usage (nights used): 6:17 AHI: 1.6 "Amina" comes in for CPAP compliance. At one point she had lost a significant amount of w eight and stopped using her CPAP. Nocturnal pulse oxymetry on room air without CPAP showed that she continued to have significant oxygen desaturation. She has since returned to using CPAP. She does well with her CPAP usage when wearing it, but often struggles with her cons istency. She says she stopped wearing it last summer because of the heat. She started wear ing it again this fall and has done well since. I have discussed the download and results of the paperwork in detail. The download shows t hat her sleep apnea is controlled, with an AHI of 2.0. It also shows that her leaks are con trolled. BP 134/76 | Pulse 80 | Resp 16 | Wt 92.1 kg (203 lb 2.5 oz) | SpO2 98% | BMI 36.57 kg/ m Review of Systems Objective: Physical Exam Assessment: Problem #1: OBSTRUCTIVE SLEEP APNEA ([id number]-R00.33) This is controlled with CPAP. She is doing well with her CPAP usage during the last 6 week s, but has struggled with her consistency for much of the last year. Plan: 1. She is to continue with CPAP indefinitely. 2. I have recommended that she work toward wearing her CPAP 100% of the time she is asleep . 3. Touch base with medical supplier twice per year to ensure that all equipment is satisfa ctory. I will follow up again in 1 year, sooner prn. Fifteen minutes were spent [id number], wit h the majority of time spent [...]
--- OUTSIDE RECORDS SUMMARY | ~2019-09-15 | XMS | Encounter Summary ---
Demographics + + + | Address | [address] [place] [address] | | | [place] [address] | + + + | Home Phone | | + + + | Preferred Language | Unknown | + + + | Marital Status | | + + + | Alevism Affiliation | Unknown | + + + | Race | Unknown | + + + | Ethnic Group | Unknown | + + + Author + + + | Author | [facility] | | | and [place] | + + + | Organization | [facility] | | | and [place] | + + + | Address | Unknown | + + + | Phone | Unavailable | + + + Support + + + + + | Name | Relationship | Address | Phone | + + + + + | Neymar Burt | ECON | [address] | | | | | , [address] | | + + + + + Care Team Providers + +------+ + | Care Workers Compensation Claims Supervisor Name | Role | Phone | + +------+ + | Jasson Florian MD | PCP | | + +------+ + Reason for Visit +--------+ + | Reason | Comments | +--------+ + | Other | sleep results | +--------+ + Encounter Details +--------+---------+ + + + | Date | Type | Department | Care Team | Description | +--------+---------+ + + + | 11/26/ | Office | [facility] | Dann Alcocer | JAIRO (obstructive | | 2015 | Visit | SLEEP DISORDER [address] | MD [address] | sleep apnea) | | | | [address] [place] | [address] [place] | (Primary Dx) | | | | [place] [address] | [place] [address] | | | | | [phone] | [phone] | | | | | | | | +--------+---------+ + + + [...] + + + | Blood Pressure | 126/70 | 11/26/2014 1:43 PM | | | | | PST | | + + + + + | Pulse | 93 | 11/26/2014 1:43 PM | | | | | PST | | + + + + + | Temperature | - | - | | + + + + + | Respiratory Rate | 14 | 11/26/2014 1:43 PM | | | | | PST | | + + + + + | Oxygen Saturation | 98% | 11/26/2014 1:43 PM | | | | | PST | | + + + + + | Inhaled Oxygen | - | - | | | Concentration | | | | + + + + + | Weight | 97.7 kg (215 lb 6.4 | 11/26/2014 1:43 PM | | | | oz) | PST | | + + + + + | Height | - | - | | + + + + + | Body Mass Index | 38.77 | 11/01/2014 9:08 AM | | | | | PST | | + + + + + documented in this encounter Patient Instructions Patient Instructions Dann Alcocer Jr., MD - 11/26/2014 2:16 PM PST Continuous Positive Air Pressure (CPAP) Continuous positive air pressure (CPAP)uses gentle air pressure to hold the airway open. CPAP is often the most effective treatment for sleep apnea and severe snoring. It works very well for many people. But keep in mind that it can take several adjustments before the setu p is right for you. How CPAP Works CPAP is asmall portable pump beside the bed. The pumpsends air through a hose, which is held over your noseand/or mouthby a mask.Mild air pressureis gently pushed through your airway. The air pressure nudges sagging tissues aside. This widens the airway so you ca n breathe better. CPAP may be combined with other kinds of therapy for sleep apnea. Types of Air Pressure Treatments There are different types of CPAP. Your doctor or CPAP instrumentation and control technician will help you decide whic h type is best for you: Basic CPAPkeeps the pressure constant all night long. A bilevel device(BiPAP)providesmore pressure when you breathe in and less when you breathe out.A BiPAP machine also may be set to provide automatic breaths to maintain opal thing if you stop breathing while sleeping. An autoCPAP deviceautomatically adjusts pressure throughout the night and in response to changes such as body position, sleep stage, and snoring. [id number] [email or web address]. [address] [place] [address]. All righ ts reserved. This information is not intended as a substitute for professional medical care. Always follow your healthcare professional's instructions. Continuous Positive Airway Pressure (CPAP) Your health care provider has prescribed continuous positive airway pressure (CPAP) therapy for you. A CPAPdevice helps you breathe better at night. The device delivers air through your nose or mouth when you breathe in to keep your air passages open. CPAP is: Used most often to treat sleep apnea and some other problems (Sleep apnea is a chronic c ondition with periods of sleep in which you briefly stop breathing.) Safe and very effective, but it takes time to get used to the mask. Your health care provider, nurse, or medical supplier will give you tips for wearing and ca ring for your CPAP device. General guidelines It's very important not togive up! It takes time to get used to wearing the mask at [facility]. Practice using your CPAP device during the day, especially whenever you take a nap. Remember, there are several different types of masks. If you can t get used to your ma sk, ask your provider or medical supply company about trying another style. If you have nasal stuffiness or dryness when using your CPAP device, talk with your prov ider or medical supply company. There are ways to lessen these problems. For example, your p michael may recommend moistening nasal spray or the [employer] supply [employer] may recommend a d evice with a humidifier. The goal is to use yourCPAP all night, every night, during all naps, and even when you travel. Keep your mask clean. Wash it with soap and water. Be sure to rinse the mask and tubing well with water to remove any soap. Let them air-dry thoroughly before using. Make yourself comfortable when sleeping with CPAP. Try using extra pillows. Work with your medical supply company so that you know how to correctly use your CPAP. The r sales representative door to door will be able to help you: Use the CPAP correctly Troubleshoot any problems that come up Learn to clean and maintain the device Adjust to regular use of the CPAP [id number] [employer]. [address] [place] [address], [place] [address]. All righ ts reserved. This information is not intended as a substitute for professional medical care. Always follow your healthcare professional's instructions. documented in this encounter Progress Notes Dann Alcocer Jr., MD - 11/26/2014 1:51 PM PSTThe patient comes in for follow-up after undergoing diagnostic polysomnography. My interpretation of the patient's sleep study, which I have reviewed with the patient, is as follows: Polysomnogram Report on Corina Garcia performed on 11/07/2014 Clinical Information: Corina Garcia is a 69 y.o. female who underwent diagnostic no cturnal polysomnography on 11/07/[address] Liang Florian because of possible Obstruct leeann Sleep Apnea complicating the management of AODM, GERD, Asthma, HBP.. Technical Information: Please see technical data stored as Polysomnography under "Media" se ction in the [employer] EMR. Definitions (The AASM Manual for the Scoring of Sleep and Associated Events, Version 2.0; 2 012): Apnea: There is a drop in the peak signal excursion by 90% or greater of pre-event baseline using an oronasal thermal sensor (diagnostic study), PAP device flow (titration study), or an alternative apnea sensor (diagnostic study); the duration of the 90% or greater drop in s ensor signal is 10 seconds or longer. Obstructive Apnea: Event associated with continued or increased inspiratory effort througho ut the entire period of absent airflow. Central Apnea: Event associated with absent inspiratory effort throughout the entire period of absent airflow. Mixed Apnea: Event associated with absent inspiratory effort in the initial portion of the event followed by resumption of inspiratory effort during the second portion of the event. Hypopnea: Nasal pressure excursion drop by 30% or more from baseline, lasting at lease 10 s econds and 90% of the event's duration meets this amplitude criteria. This is associated wit h a 4% or greater desaturation from pre-baseline. Respiratory Event Related Arousal: A sequence of breaths lasting 10 seconds or longer cali cterized by increasing respiratory effort or by flattening of the inspiratory portion of the nasal pressure (diagnostic study) or PAP device flow (titration study) waveform leading to arousal from sleep when the sequence of breaths does not meet criteria for an apnea or hypop valeriy. Sleep Architecture: Lights out was recorded at 2243 hundred hours on 11/07/2014 and lights o n was recorded at 0804 hundred hours on 11/08/2014. The latency to sleep onset was normal at 2 0 minutes. The patient slept for 436 minutes out of 561 minutes of study time resulting an a sleep efficiency that was low at 77.7 %. The amount of N1 sleep was normal occupying 8.5% o f the Total Sleep Time; the amount of N2 sleep was elevated occupying 77.3% of the Total Sle ep Time; the amount of N3 sleep was low occupying 0% of the Total Sleep Time; the amount of REM sleep was borderline low occupying 14.2% of the Total Sleep Time and the latency to REM sleep was mildly prolonged at 186 minutes. The patient spent 44.6% of the evening in the left lateral decubitus position, 29.7% of the evening in the right lateral decubitus position, 25.7% of the evening in the supine positio n, and 0% of the evening in the prone position. Sleep was mildly fragmented; the Arousal Index was 27.7. The patient reported this to be a "usual" night's sleep. Cardiopulmonary Monitoring: The heart rate averaged in the high-70's to low-80's beats per minute. Mild rate variability was noted. The rhythm was sinus. In the course of the evening there were 59 obstructive apneas, 0 mixed apneas, 2 central ap neas, 67 hypopneas, and 0 Respiratory Effort Related Arousals (RERA's). The Respiratory Dist urbance Index (RDI) was elevated at 17.6; the Apnea-Hypopnea Index was elevated at 17.6; the Apnea Index (AI) was elevated at 8.4. The respiratory events were not sleep stage dependent . The respiratory events were somewhat positional. The respiratory events were more frequent in the supine position but they were of clinical significance in all positions. The respiratory events occasioned sleep fragmentation; the Respiratory Arousal Index was 8. 9. The shyanne oxygen saturation was 81% and the patient spent 36.9 minutes with an oxygen satur ation of less than 88%. ETCO2 was 50-55 for 18.8 minutes but was above 55 for less than a minute. Limb Movement Monitoring: There were 306 Periodic Limb Movements (PLMS Index 42.1) of which 62 were associated with arousals; the PLMS Arousal Index was elevated at 8.5. Interpretation: This polysomnogram is abnormal secondary to: Obstructive Sleep Apnea is diagnosed and is associated with sleep fragmentation and moderat e oxygen desaturation. Mild sleep related hypoventilation is suggested by the mild elevations in ETCO2. Periodic Limb Movements of Sleep are present and significantly fragment sleep. Suggestions: 1. The principles of sleep hygiene should be reviewed with the patient. 2. Treatment of Obstructive Sleep Apnea and hypoventilation is advised. 3. A ferritin level should be checked. If the ferritin level is less than 50, iron suppleme ntation should be considered to raise the ferritin to above 50. This may help with PLMS. Onc e the ferritin level is above 50, pharmacologic therapy of PLMS/RLS should be considered if they are felt to be clinically significant. BP 126/70 | Pulse 93 | Resp 14 | Wt 97.705 kg (215 lb 6.4 oz) | SpO2 98% A: JAIRO: The patient has clinically significant JAIRO. I've discussed this with the patient kourtney hassan. I've discussed treatment options (weight loss, CPAP, Dental Appliance, surgery) again a nd I am advising a trial of CPAP therapy. The mechanisms of action of CPAP in treating JAIRO w ere discussed in detail with the patient. I've discussed desensitization techniques as well as some imagery techniques that can be helpful. I've discussed the use of heated humidity. A nd I've discussed our PAP Compliance Clinic. This will likely also help with her mild sleep related hypoventilation; weight loss would likely help significantly too. P: Resmed AirSense 10 autoset for Her CPAP 4-20cm is prescribed. F/u 2 days after getting CPAP in PAP Compliance Clinic. documented in th is encounter Plan of Treatment Not on filedocumented as of this encounter Visit Diagnoses + + | Diagnosis | + + | JAIRO (obstructive sleep apnea) - Primary Obstructive sleep apnea (adult) (pediatric) | + + documented in this encounter
--- OUTSIDE RECORDS SUMMARY | ~2019-09-15 | XMS | Encounter Summary ---
Demographics + + + | Address | [address] [place] [address] | | | [place] [address] | + + + | Home Phone | | + + + | Preferred Language | Unknown | + + + | Marital Status | | + + + | Tenriism Affiliation | Unknown | + + + | Race | Unknown | + + + | Ethnic Group | Unknown | + + + Author + + + | Author | [facility] | | | and [place] | + + + | Organization | [facility] | | | [...] ST | | | | | , [address] | | + + + + + Care Team Providers + +------+ + | Care Nurse Recruiter Name | Role | Phone | + [...] + + | 06/24/ | Office | [facility] | Lang Hernandez PA | JAIRO on CPAP (Primary | | 2017 | Visit | SLEEP DISORDER [address] | [address] | Dx) | | | | [address] [place] | [place] | | | | | [place] [address] | [address] | | | | | [phone] | | | +--------+---------+ + + + [...] + + + | Blood Pressure | 130/76 | 06/24/2017 1:56 PM | | | | | PDT | | + + + + + | Pulse | 93 | 06/24/2017 1:56 PM | | | | | PDT | | + + + + + | Temperature | - | - | | + + + + + | Respiratory Rate | 16 | 06/24/2017 1:56 PM | | | | | PDT | | + + + + + | Oxygen Saturation | 96% | 06/24/2017 1:56 PM | | | | | PDT | | + + + + + | Inhaled Oxygen | - | - | | | Concentration | | | | + + + + + | Weight | 97.8 kg (215 lb 11.2 | 06/24/2017 1:56 PM | | | | oz) | PDT | | + + + + + | Height | 158.8 cm (5' 2.5") | 06/24/2017 1:56 PM | | | | | PDT | | + + + + + | Body Mass Index | 38.82 | 06/24/2017 1:56 PM | | | | | PDT | | + + + + + documented in this encounter Progress Notes Park Patterson, Center Mgr - 06/24/2017 2:00 PM PDT 06/24/17 1300 Cherry Depression Inventory-II Depression Score 4 - Minimal depression Insomnia Severity Index Insomnia Severity Index 2 [place] Sleepiness Scale Sitting and reading 1 Watching TV 1 Sitting, inactive in a public place (e.g. a theatre or a meeting) 1 As a passenger in a car for an hour without a break 1 Lying down to rest in the afternoon when circumstances permit 1 Sitting and talking to someone 0 Sitting quietly after a lunch without alcohol 0 In a car, while stopped for a few minutes in traffic 0 Total score 5 SF-36v2 Score PF 49.89 RP 41.44 BP 62 GH 65.07 VT 49.63 SF 37.29 RE 31.8 MH 40.4 PCS 60.22 MCS 33.61 ojose, FRANCO Lowry - 2:00 PM PDT Subjective: Patient ID: Corina Garcia is a 72 y.o. female. HPI last office visit: 06/24/2016 date of polysomnography: 11/07/2014 AHI: 17.6 RDI: 17.6 O2%: 81% with 36.9 minutes below 88% Machine type: ResMed AirSense 10 Mask type: nasal pillows/nasal mask DME: [place] pressure: 5-20 cm Median: 11.9 cm 95%: 13.0 cm maximum: 13.4 cm Nights using CPAP: 364/365 % of nights >4 hours: 93% average usage (all nights): 5:53 average usage (nights used): 5:54 AHI: 2.0 "Amina" comes in for CPAP compliance. At one point she had lost a significant amount of w eight and stopped using her CPAP. Nocturnal pulse oxymetry on room air without CPAP showed that she continued to have significant oxygen desaturation. She has since returned to using CPAP. She is wearing it on a nightly basis for the duration of the night. Her CPAP back t o being a regular part of her sleep routine. She does not have any questions or concerns. I have discussed the download and results of the paperwork in detail. She says her areas o f declines are due to a close friend passing away recently. The download shows that her slee p apnea is controlled, with an AHI of 2.0. It also shows that her leaks are controlled. BP 130/76 | Pulse 93 | Resp 16 | Ht 1.588 m (5' 2.5") | Wt 97.8 kg (215 lb 11.2 oz) | SpO2 96% | BMI 38.82 kg/m Review of Systems Objective: Physical Exam Assessment: Problem #1: OBSTRUCTIVE SLEEP APNEA (FKB52-A65.33) This is controlled with CPAP. She is [...] appro priate paperwork. Fifteen minutes were spent [id number], with the majority of time spent in [...]
--- OUTSIDE RECORDS SUMMARY | ~2019-09-15 | XMS | Encounter Summary ---
Demographics + + + | Address | [address] | | | [place] [address] | + + + | Home Phone | | + + + | Preferred Language | Unknown | + + + | Marital Status | Single | + + + | Oriental Orthodox Affiliation | Unknown | + + + | Race | White | + + + | Ethnic Group | Not or | + + + Author + + + | Author | [facility] | + + + | Organization | [facility] | + + + | Address | Unknown | + + + | Phone | Unavailable | + + + Support + + +---------+ + | Name | Relationship | Address | Phone | + + +---------+ + | Veronica Enciso | ECON | Unknown | | + + +---------+ + Care Team Providers + +------+ + | Care Health Lead Name | Role | Phone | + [...] | | | | | [place], | | | | | | [place] [address] | | | +--------+ + + + [...]
--- OUTSIDE RECORDS SUMMARY | ~2019-09-15 | XMS | Encounter Summary ---
Demographics + + + | Address | [address] | | | [place] [address] | + + + | Home Phone | | + + + | Preferred Language | Unknown | + + + | Marital Status | Single | + + + | Taoism Affiliation | Unknown | + + + | Race | White | + + + | Ethnic Group | Not or | + + + Author + + + | Author | [facility] | + + + | Organization | [facility] | + + + | Address | Unknown | + + + | Phone | Unavailable | + + + Support + + +---------+ + | Name | Relationship | Address | Phone | + + +---------+ + | Veronica Enciso | ECON | Unknown | | + + +---------+ + Care Team Providers + +------+ + | Care Card Dealer Name | Role | Phone | + +------+ + | Prasanth Mooney DO | PCP | | + +------+ + Encounter Details +--------+ + + + + | Date | Type | Department | Care Team | Description | +--------+ + + + + | 09/11/ | Telephone | Neurosurgery at | Sally Casey V, | | | 2019 | | [facility] [address] | [address] | | | | | Cindy Mailcode: [id number] | [address] | | | | | [facility] | [place], [place] | | | | | and [place], | [address] | | | | | [facility] [address] | [phone] | | | | | [place], [place] | | | | | | [address] | | | | | | [phone] | | | +--------+ + + + [...]
--- OUTSIDE RECORDS SUMMARY | ~2019-09-15 | XMS | Encounter Summary ---
Demographics + + + | Address | [address] [place] [address] | | | [place] [address] | + + + | Home Phone | | + + + | Preferred Language | Unknown | + + + | Marital Status | | + + + | Catholic Affiliation | Unknown | + + + | Race | Unknown | + + + | Ethnic Group | Unknown | + + + Author + + + | Author | [facility] | | | and [place] | + + + | Organization | [facility] | | | [...] ST | | | | | , [address] | | + + + + + Care Team Providers + +------+ + | Care Lock Maintenance Supervisor Name | Role | Phone | [...] + + | 06/24/ | Office | [facility] | Lang Hernandez PA | JAIRO on CPAP (Primary | | 2016 | Visit | SLEEP DISORDER [address] | [address] | Dx) | | | | [place] [place] | [place] | | | | | [place] [address] | [address] | | | | | [phone] | | | +--------+---------+ + + + [...] 10 with nasal pillows/nasal mask obtained from: [employer] in [place] pressure: 5-20 cm Median: 11.6 cm 95%: [...] Exam Assessment: Problem #1: OBSTRUCTIVE SLEEP APNEA (CBU73-B79.33) This is well controlled with CPAP. Nocturnal [...] appro priate paperwork. Fifteen minutes were spent [id number], with the majority of time spent in [...]
--- OUTSIDE RECORDS SUMMARY | ~2019-09-15 | XMS | Encounter Summary ---
Demographics + + + | Address | [address] [place] [address] | | | [place] [address] | + + + | Home Phone | | + + + | Preferred Language | Unknown | + + + | Marital Status | | + + + | Congregational Affiliation | Unknown | + + + | Race | Unknown | + + + | Ethnic Group | Unknown | + + + Author + + + | Author | [facility] | | | and [place] | + + + | Organization | [facility] | | [...] ST | | | | | , [address] | | + + + + + Care Team Providers + +------+ + | Care Insurance Salesperson Name | Role | Phone | + [...] + + | 06/28/ | Office | [facility] | Lang Hernandez PA | JAIRO on CPAP (Primary | | 2019 | Visit | SLEEP DISORDER 401 | [address] | Dx) | | | | [address] [place] | [place] | | | | | [place] [address] | [address] | | | | | [phone] | | | +--------+---------+ + + + [...] AirSense 10 Mask type: nasal mask DME: [facility] in [place] pressure: 5-20 cm Median: 10.8 cm 95%: [...] m Assessment: Problem #1: OBSTRUCTIVE SLEEP APNEA ([id number]-M77.33) This is controlled with CPAP. She is doing well with her CPAP usage. Plan: 1. She is to continue with CPAP indefinitely. 2. Touch base with medical supplier twice per year to ensure that all equipment is satisfa ctory. I will follow up again in 1 year, sooner prn. Fifteen minutes were spent [id number], wit h the majority of time spent [...]
--- OUTSIDE RECORDS SUMMARY | ~2019-09-15 | XMS | Encounter Summary ---
Demographics + + + | Address | [address] | | | [place] [address] | + + + | Home Phone | | + + + | Preferred Language | Unknown | + + + | Marital Status | Single | + + + | Islam Affiliation | Unknown | + + + [...] Team Providers + +------+ + | Care Refrigerating Oiler Name | Role | Phone | + [...]
--- OUTSIDE RECORDS SUMMARY | ~2019-09-15 | XMS | Encounter Summary ---
Demographics + + + | Address | [address] [place] [address] | | | [place] [address] | + + + | Home Phone | | + + + | Preferred Language | Unknown | + + + | Marital Status | | + + + | Latter Day Affiliation | Unknown | + + + | Race | Unknown | + + + | Ethnic Group | Unknown | + + + Author + + + | Author | [facility] | | | and [place] | + + + | Organization | [facility] | | | [...] ST | | | | | , [address] | | + + + + + Care Team Providers + +------+ + | Care Instructor Bridge Name | Role | Phone | + [...] + | 08/23/ | Office | [facility] | Lang Hernandez PA | JAIRO on CPAP (Primary | | 2018 | Visit | SLEEP DISORDER 401 | [address] | Dx) | | | | [place] | [place] | | | | | [place] [address] | [address] | | | | | [phone] | | | +--------+---------+ + + + [...] in this encounter Progress Notes Dia Mcgrath, Survey Associate - 08/23/2018 2:30 PM PSTFormatting of this note might b e different from the original. 08/23/18 1400 [address] Depression Inventory-II Depression Score 3 - Minimal depression Insomnia Severity Index Insomnia Severity Index 0 Orchard Sleepiness Scale Sitting and reading 1 Watching [...] AirSense 10 Mask type: nasal mask DME: [employer] [facility] in [place] pressure: 5-20 cm Median: 11.5 cm 95%: [...] Exam Assessment: Problem #1: OBSTRUCTIVE SLEEP APNEA ([id number]-H59.33) This is controlled with CPAP. She is [...] year, sooner prn. Fifteen minutes were spent [id number], wit h the majority of time spent [...]
--- OUTSIDE RECORDS SUMMARY | ~2019-09-15 | XMS | Encounter Summary ---
Demographics + + + | Address | [address] [place] [address] | | | [place] [address] | + + + | Home Phone | | + + + | Preferred Language | Unknown | + + + | Marital Status | | + + + | Scientology Affiliation | Unknown | + + + | Race | Unknown | + + + | Ethnic Group | Unknown | + + + Author + + + | Author | [facility] | | | and [place] | + + + | Organization | [facility] | | | [...] ST | | | | | , [address] | | + + + + + Care Team Providers + +------+ + | Care Sales Assistant Name | Role | Phone | [...] + + | 11/29/ | Office | [facility] | Lang Hernandez PA | JAIRO on CPAP (Primary | | 2015 | Visit | SLEEP DISORDER 401 | [address] | Dx) | | | | [address] [place] [place] | [place], [place] | | | | | [place] [address] | [address] | | | | | [phone] | | | +--------+---------+ + + + [...] AirSense 10 with nasal pillows obtained from: [employer] in [place] pressure: 5-20 cm 95%: 12.8 cm maximum: [...] weeks, sooner prn. Thirty minutes were spent [id number], wit h the majority of time spent [...]
--- OUTSIDE RECORDS SUMMARY | ~2019-09-15 | XMS | Encounter Summary ---
Demographics + + + | Address | [address] [place] [address] | | | [place] [address] | + + + | Home Phone | | + + + | Preferred Language | Unknown | + + + | Marital Status | | + + + | Zoroastrian Affiliation | Unknown | + + + | Race | Unknown | + + + | Ethnic Group | Unknown | + + + Author + + + | Author | [facility] | | | and [place] | + + + | Organization | [facility] | | | [...] ST | | | | | , [address] | | + + + + + Care Team Providers + +------+ + | Care Bell Person Name | Role | Phone | + [...] + + | 01/29/ | Office | [facility] | Lang Hernandez PA | JAIRO on CPAP (Primary | | 2016 | Visit | SLEEP DISORDER [address] | [address] | Dx) | | | | [address] [place] | [place] | | | | | [place] [address] | [address] | | | | | [phone] | | | +--------+---------+ + + + [...] Insomnia Severity Index Insomnia Severity Index 2 Strathmore Sleepiness Scale Sitting and reading 1 Watching [...] 10 with nasal pillows/nasal mask obtained from: [employer] in [place] pressure: 5-20 cm Median: 11.3 cm 95%: [...] Exam Assessment: Problem #1: OBSTRUCTIVE SLEEP APNEA ([id number]-K18.33) This is well controlled with CPAP. She has lost weight since her last visit and has chosen to sleep without her CPAP. She has mild apnea with an AHI of 17.6, but has significant oxy gen desaturation with 36.9 minutes below 88% during her diagnostic study. Plan: 1. She is to continue with CPAP indefinitely. 2. We have faxed a prescription to [facility] in [place] for a nocturnal pulse oxymetry pasquale dy without CPAP on room air. We will call her with the results. 3. She will resume using CPAP, if needed. I will follow up again in 1 year, sooner prn. Fifteen minutes were spent [id number], wit h the majority of time spent [...]
--- OUTSIDE RECORDS SUMMARY | ~2019-09-15 | XMS | Encounter Summary ---
Demographics + + + | Address | [address] [place] [address] | | | [place] [address] | + + + | Home Phone | | + + + | Preferred Language | Unknown | + + + | Marital Status | | + + + | Holiness Affiliation | Unknown | + + + | Race | Unknown | + + + | Ethnic Group | Unknown | + + + Author + + + | Author | [facility] | | | and [place] | + + + | Organization | [facility] | | [...] ST | | | | | , [address] | | + + + + + Care Team Providers + +------+ + | Care Mate Fishing Vessel Name | Role | Phone | + [...] + + | 08/09/ | Telephone | [facility] | Apolinar Spangler DO | Referral (schedule | | 2019 | | NEUROSURGERY [address] | [address] | from referral sent | | | | [address] | [address] | 07/07) | | | | [place], [place] | [place] [address] | | | | | [address] | [phone] | | | | | [phone] | | | +--------+ + + + [...]
--- OUTSIDE RECORDS SUMMARY | ~2019-09-15 | XMS | Encounter Summary ---
Demographics + + + | Address | [address] | | | [place] [address] | + + + | Home Phone | | + + + | Preferred Language | Unknown | + + + | Marital Status | Single | + + + | Catholic Affiliation | Unknown | + + + | Race | White | + + + | Ethnic Group | Not or | + + + Author + + + | Author | [facility] | + + + | Organization | [facility] | + + + | Address | Unknown | + + + | Phone | Unavailable | + + + Support + + +---------+ + | Name | Relationship | Address | Phone | + + +---------+ + | Veronica Enciso | ECON | Unknown | | + + +---------+ + Care Team Providers + +------+ + | Care Computer Graphic Artist Name | Role | Phone | + +------+ + | Jescia Prasanth | PCP | | + +------+ [...] | | gland | [address] | [place], [place] | | | | | Procedures | [place], | [address] | | | | | [place] | [place] [address] | Phone: | | | | | PATIENT | Phone: | [phone] | | | | | [place] | [phone] | Fax: | | | | | EST PATIENT | Fax: | [phone] | | | | | LEVEL [place] | [phone] | | + +--------+ + + + + Encounter Details +--------+---------+ + + + | Date | Type | Department | Care Team | Description | +--------+---------+ + + + | 09/08/ | Office | Neurosurgery at | Alfonso Smith MD | | | 2019 | Visit | [facility] [address] | [address] | | | | | Ave Mailcode: CH8N | [place], [place] | | | | | [facility] | [address] | | | | | and [place], | [phone] | | | | | [facility] | | | | | | Floor [place], [place] | | | | | | [address] | | | | | | [phone] | | | +--------+---------+ + + + [...]
--- OUTSIDE RECORDS SUMMARY | ~2019-09-15 | XMS | Encounter Summary ---
Demographics + + + | Address | [address] [place] [address] | | | [place] [address] | + + + | Home Phone | | + + + | Preferred Language | Unknown | + + + | Marital Status | | + + + | Sabianism Affiliation | Unknown | + + + | Race | Unknown | + + + | Ethnic Group | Unknown | + + + Author + + + | Author | [facility] | | | and [place] | + + + | Organization | [facility] | | | and [place] | + + + | Address | Unknown | + + + | Phone | Unavailable | + + + Support + + + + + | Name | Relationship | Address | Phone | + + + + + | Blackmonherrera Burt | ECON | [address] | | | | | , [address] | | + + + + + Care Team Providers + +------+ + | Care Programs Director Name | Role | Phone | + [...] + + | 06/24/ | Office | [facility] | Lang Hernandez PA | JAIRO on CPAP (Primary | | 2017 | Visit | SLEEP DISORDER [address] | [address] | Dx) | | | | [address] [place] | [place] | | | | | [place] [address] | [address] | | | | | [phone] | | | +--------+---------+ + + + [...] in this encounter Progress Notes Park Patterson, Baby Formula Mixer - 06/24/2017 2:00 PM PDT 06/24/17 1300 [address] Depression Inventory-II Depression Score 4 - Minimal depression Insomnia Severity Index Insomnia Severity Index 2 [place] Sleepiness Scale Sitting and reading 1 Watching [...] 10 Mask type: nasal pillows/nasal mask DME: [employer] in [place] pressure: 5-20 cm Median: 11.9 cm 95%: [...] Exam Assessment: Problem #1: OBSTRUCTIVE SLEEP APNEA (DFF53-V93.33) This is controlled with CPAP. She is [...] appro priate paperwork. Fifteen minutes were spent [id number], with the majority of time spent in [...]
--- OUTSIDE RECORDS SUMMARY | ~2019-09-15 | XMS | Encounter Summary ---
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 New reference range in effect | [facility] | | 2-6-18. | LABORATORY | | | [place] | + + + + + + + + | Performing | Address | City/State/Zipcode | Phone Number | | Organization | | | | + + + + + | [facility] | [address] | [place] [address] | | | SERVICESJACEY | [address] [...] [facility] | [address] | [place] [address] | | | SERVICES, CORE | PARK [...]
--- OUTSIDE RECORDS SUMMARY | ~2019-09-15 | XMS | Clinical Summary ---
Demographics + + + | Address | [address] [place] [address] | | | [place] [address] | + + + | Home Phone | | + + + | Preferred Language | Unknown | + + + | Marital Status | | + + + | Bahai Affiliation | Unknown | + + + | Race | Unknown | + + + | Ethnic Group | Unknown | + + + Author + + + | Author | [facility] | | | and [place] | + + + | Organization | [facility] | | [...] ST | | | | | , [address] | | + + + + + Care Team Providers + +------+ + | Care Lead Loader Name | Role | Phone | + +------+ + | Prasanth Mooney DO | PCP | | + +------+ + Allergies + + + + + + | Active Allergy | Reactions | Severity | Noted | Comments | | | | | Date | | + + + + + + | Sulfa Antibiotics | | | 11/01/19 | | | | | | 15 | | + + + + + [...] Activ | | (SINGULAIR) 10 mg | nightly. | | | | | e | | tablet | | | | | | | + + + +---------+------+------+-------+ | UNABLE TO FIND | Med Name: Resmed | | 0 | | | Activ | | | AirSense 10 autoset | | | | | e | | | For Her CPAP: 4-20 | | | | | | | | cm while sleeping. | | | | | | + + + +---------+------+------+-------+ | metFORMIN | Take 500 mg by mouth | | 0 | | | Activ | | (GLUCOPHAGE) 500 mg | 2 times daily (with | | | | | e | | tablet | breakfast & | | | | | | | | dinner). | | | | | | + + + +---------+------+------+-------+ | metoprolol | Take 100 mg by mouth | | 0 | | | Activ | | succinate | Daily. 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 | | year of INH | + + + +---+ | Diabetes mellitus | | + +---+ | Essential hypertension | | + +---+ | DJD (degenerative joint disease) | | + +---+ | Loss of hearing | | + +---+ | Depression | | + +---+ | Hypercholesterolemia | | + +---+ Encounters +--------+ + + + + | Date | Type | Specialty | Care Team | Description | +--------+ + + + + | 08/09/ | Telephone | Neurosurgery | Apolinar Spangler DO | Referral (schedule | 2018 | | | | from referral sent | | | | | | 07/07) | +--------+ + + + + | 08/09/ | Telephone | Neurology | Cherelle Tavares | Referral (schedule | 2018 | | | MD | from referral sent | | | | | | 07/07) | +--------+ + + + + | 06/28/ | Office | Sleep Medicine | Lang Hernandez PA | JAIRO on CPAP (Primary | | 2019 | Visit | | | Dx) | +--------+ + + + + from Last 3 Months Family History + + +------+ + | Medical History | Relation | Name | Comments | + + +------+ + | Asthma | Brother | | | + + +------+ + | Cancer | Father | | colon cancer | + + +------+ + | Heart disease | Mother | | | + + +------+ + + +------+ + + | Relation | Name | Status | Comments | + +------+ + + | Brother | | Alive | | + +------+ + + | Daughter | | Alive | | + +------+ + + | Father | | | Colon cancer | | | | (Age | | | | | 78) | | + +------+ + + | Mother | | | valvular heart disease | | | | (Age | | | | | 92) | | + +------+ + + | Son | | Alive | | + +------+ + + Social History + +-------+ +--------+------+ [...] | + + + + + | Hepatitis C | | | | | Screening | 7 | | | + + + + + | Diabetic Eye Exam | | | | | | 5 | | | + + + + + | Diabetic Foot Exam | | | | | | 5 | | | + + + + + | Hemoglobin A1c | | | | | Screening | 5 | | | + + + + + | Vaccine: | | | | | Dtap/Tdap/Td (1 - | 6 | | | | Tdap) | | | | + + + + + | Colorectal Cancer | | | | | Screening | 7 | | | | (Colonoscopy) | | | | + + + + + | Vaccine: Zoster (1 | | | | | of 2) | 7 | | | + + + + + | Breast Cancer | | | | | Screening | 2 | | | + + + + + | Vaccine: | | | | | Pneumococcal 65+ (1 | 2 | | | | of 2 - PCV13) | | | | + + + + + | Adult Annual | | | | | Wellness Visit | 5 | | | + + + + + | Microalbumin | | | | | Screening | 5 | | | + + + + + | Statin Therapy | | | | | (optimal intensity) | 5 | | | + + + + + | Vaccine: Influenza | | 07/04/2018 | | | (#1) | 9 | | | + + + + + Results Not on filefrom Last 3 Months Insurance + +--------+ +--------+ +---------+--------+ | Payer | Benefi | Subscriber | Effect | Phone | Address | Type | | | t Plan | ID | leeann | | | | | | / | | Dates | | | | | | Group | | | | | | + +--------+ +--------+ +---------+--------+ | MEDICARE | MEDICA | [id number] | 01/03/20 | [phone] | | Medica | | | RE | | 12-Pre | 5 | | re | | | PART A | | sent | | | | | | AND B | | | | | | + +--------+ +--------+ +---------+--------+ | [place] | RAFAEL | [id number] | 10/07/19 | [phone] | | Indemn | | | E FOR | | 15-Pre | 0 | | ity | | | LIFE | | sent | | | | + +--------+ +--------+ +---------+--------+ + +--------+ +--------+ + + | Guarantor Name | Accoun | Relation to | Date | Phone | Billing Address | | | t Type | Patient | of | | | | | | | | | | + +--------+ +--------+ + + | Corina Garcia | Person | Self | [birth year] | [address] | | [place] | al/Jaskaran | | 1945 | [phone] | [place], [place] | | | [place]orri | | | 6 (Home) | [address] | + +--------+ +--------+ + + Advance Directives + + + + + | Type | Date Recorded | Patient | Explanation | | | | Tunneling Machine Operator | | + + + + + | Power of | | | | | Resource Center Teacher | | | | + + + + + | Advance | | | | | Directive | | | | + + + + +
--- OUTSIDE RECORDS SUMMARY | ~2019-09-15 | XMS | Encounter Summary ---
Demographics + + + | Address | [address] [place] [address] | | | [place] [address] | + + + | Home Phone | | + + + | Preferred Language | Unknown | + + + | Marital Status | | + + + | Religion Affiliation | Unknown | + + + | Race | Unknown | + + + | Ethnic Group | Unknown | + + + Author + + + | Author | [facility] | | | and [place] | + + + | Organization | [facility] | | | and [place] | + + + | Address | Unknown | + + + | Phone | Unavailable | + + + Support + + + + + | Name | Relationship | Address | Phone | + + + + + | Neymar Burt | ECON | [address] | | | | | , [address] | | + + + + + Care Team Providers + +------+ + | Care Oral Surgeon Name | Role | Phone | + [...] + + | 11/26/ | Office | [facility] | Dann Alcocer | JAIRO (obstructive | | 2015 | Visit | SLEEP DISORDER [address] | MD Bertha [address] | sleep apnea) | | | | [address] [place] | [address] [place] | (Primary Dx) | | | | [place] [address] | [place] [address] | | | | | [phone] | [phone] | | | | | | | [...] types of CPAP. Your doctor or CPAP epitaxial reactor technician will help you decide whic h [...] as body position, sleep stage, and snoring. 2792-3588 [facility]. [address] [place] [address]. All righ ts reserved. This information is [...] get used to wearing the mask at [facility]. Practice using your CPAP device during [...] may recommend moistening nasal spray or the [employer] supply Poolami may recommend a d evice with a [...] to correctly use your CPAP. The r direct customer service representative will be able to help you: Use the CPAP correctly Troubleshoot any problems that come up Learn to clean and maintain the device Adjust to regular use of the CPAP 9502-2858 [facility]. [address] [place] [address], [place] [address]. All righ ts reserved. This information is [...] Polysomnography under "Media" se ction in the [employer] EMR. Definitions (The AASM Manual for the [...]
--- OUTSIDE RECORDS SUMMARY | ~2019-09-15 | XMS | Encounter Summary ---
Demographics + + + | Address | [address] [place] [address] | | | [place] [address] | + + + | Home Phone | | + + + | Preferred Language | Unknown | + + + | Marital Status | | + + + | Restoration Affiliation | Unknown | + + + | Race | Unknown | + + + | Ethnic Group | Unknown | + + + Author + + + | Author | [facility] | | | and [place] | + + + | Organization | [facility] | | | and [place] | + + + | Address | Unknown | + + + | Phone | Unavailable | + + + Support + + + + + | Name | Relationship | Address | Phone | + + + + + | Neymar Burt | ECON | [address] | | | | | , [address] | | + + + + + Care Team Providers + +------+ + | Care Code Enforcement Officer Name | Role | Phone | + [...] | 02/16/ | Telephone | [facility] | Lang Hernandez PA | Other | | 2015 | | SLEEP DISORDER [address] | [address] | | | | | [address] [place] | [place], [place] | | | | | [place] [address] | [address] | | | | | [phone] | | | +--------+ + + + [...]
--- OUTSIDE RECORDS SUMMARY | ~2019-09-15 | XMS | Encounter Summary ---
Demographics + + + | Address | [address] [place] [address] | | | [place] [address] | + + + | Home Phone | | + + + | Preferred Language | Unknown | + + + | Marital Status | | + + + | Judaism Affiliation | Unknown | + + + | Race | Unknown | + + + | Ethnic Group | Unknown | + + + Author + + + | Author | [facility] | | | and [place] | + + + | Organization | [facility] | [...] [address] | | | | | , [address] | | + + + + + Care Team Providers + +------+ + | Care Side Door Worker Name | Role | Phone | + [...] + + | 08/09/ | Telephone | [facility] | Cherelle Tavares, | Referral (schedule | | 2019 | | NEUROLOGY [address] | [address] | from referral sent | | | | [address] | [address] | 07/07) | | | | [place], [place] | [place] [address] | | | | | [address] | [phone] | | | | | [phone] | | | +--------+ + + + [...]
--- OUTSIDE RECORDS SUMMARY | ~2019-09-15 | XMS | Clinical Summary ---
Demographics + + + | Address | [address] [place] [address] | | | [place] [address] | + + + | Home Phone | | + + + | Preferred Language | Unknown | + + + | Marital Status | | + + + | Sikh Affiliation | Unknown | + + + | Race | Unknown | + + + | Ethnic Group | Unknown | + + + Author + + + | Author | [facility] | | | and [place] | + + + | Organization | [facility] | | [...] [address] | | | | | , [address] | | + + + + + Care Team Providers + +------+ + | Care Ethanol Quality Leader Name | Role | Phone | + [...] +--------+ +---------+--------+ | MEDICARE | MEDICA | [id number] | 01/03/20 | [phone] | | Medica | | | RE | | 12-Pre | 5 | | re | | | PART A | | sent | | | | | | AND B | | | | | | + +--------+ +--------+ +---------+--------+ | [place] | RAFAEL | [id number] | 10/07/19 | [phone] | | Indemn [...] | Self | [birth year] | [address] [facility] | | Vanessa | al/Jaskaran | | 1945 | [phone] | [place], [place] | | | lorri | | | 6 (Home) | [id number] | + +--------+ +--------+ + + Advance Directives + + + + + | Type | Date Recorded | Patient | Explanation | | | | Gift Officer | | + + + + + | Power of | | | | | Ladle Repairman | | | | + + + + + | Advance | | | | | Directive | | | | + + + + +
--- OUTSIDE RECORDS SUMMARY | ~2019-09-15 | XMS | Encounter Summary ---
Demographics + + + | Address | [address] [place] [address] | | | [place] [address] | + + + | Home Phone | | + + + | Preferred Language | Unknown | + + + | Marital Status | | + + + | Taoism Affiliation [...] ST | | | | | , [address] | | + + + + + Care Team Providers + +------+ + | Care Paper Cone Grader Name | Role | Phone | + [...] + | 12/13/ | Office | [facility] | Lang Hernandez PA | JAIRO on CPAP (Primary | | 2015 | Visit | SLEEP DISORDER [address] | [address] | Dx) | | | | [address] [place] | [place], [place] | | | | | [place] [address] | [address] | | | | | [phone] | | | +--------+---------+ + + + [...] 10 with nasal pillows/nasal mask obtained from: [employer] in [place] pressure: 5-20 cm Median: 11.4 cm 95%: [...] appr opriate paperwork. Fifteen minutes were spent [id number], with the majority of time spent in [...]
[~2019-09-15 13:36] MED LIST: CHLORTHALIDONE25 MG PO; COZAAR25 MG PO; GLIPIZIDE ER10 MG PO; JANUVIA100 MG PO; KLOR-CON M1010 MEQ PO; LIPITOR20 MG PO; METFORMIN HCL500 M2 PO; MONTELUKAST SOD10 MG PO; NITROFURANTOIN100 MG PO; TOPROL XL50 MG PO
== END 2019-09-15 15:18 | disposition home or self-care (01) ==
LOC: ED 13:36
DX: S01.01XA Laceration without foreign body of scalp, initial encounter (principal); W18.30XA Fall on same level, unspecified, initial encounter; Z87.891 Personal history of nicotine dependence; Z88.2 Allergy status to sulfonamides; Z79.899 Other long term (current) drug therapy; Z79.84 Long term (current) use of oral hypoglycemic drugs
CPT/HCPCS: 12002; 70450; 90471; 90715; 99283-25

== ENCOUNTER 2020-05-28 06:33 | Day surgery (SDC) | payer MEDICARE, OTHER ==
[2020-05-28] MEDS ORDERED: ALDACTONE50 MG PO (07:09)
--- NOTE | 2020-05-28 09:15 | NUR ---
05/28/20 0915 Lucila Olmstead 0909-PATIENT ARRIVED TO PACU ON 6L MASK NONAROUSABLE RR EVEN. SR. RIGHT BREAST INCISION CDI. IVF INFUSING. PATIENTS HOB ELEVATED AND DOES NOT TOLERATE BEING SUPINE.
[2020-05-28] MEDS ORDERED: IBUPROFEN600 MG PO (09:26)
[2020-05-28] MEDS ORDERED: ACETAMINOPHEN500 MG PO (09:27)
--- NOTE | 2020-05-28 11:01 | EKG ---
[facility] [address] [facility] [place] [address] Signed Normal sinus rhythm Left axis deviation Cannot rule out Anterior infarct , age undetermined Abnormal ECG No previous ECGs available Confirmed by RIKA MARROQUIN MD ([id number]) on 05/28/2020 11:01:05 AM Electronically Signed By: RIKA MARROQUIN MD 05/28/20 1101 PATIENT NAME: MIKE GUTIERREZ Electrocardiogram DATE OF : 49 PHYSICIAN: RIKA MARROQUIN MD REPORT #: [id number] REPORT IS CONFIDENTIAL AND NOT TO BE RELEASED WITHOUT AUTHORIZATION
--- NOTE | 2020-05-29 08:25 | OR ---
[facility] [address] [place], [place] [address] Signed DATE OF OPERATION: 05/28/2020 SURGEON: Chuck Marlow MD DATE OF PROCEDURE: 05/28/20 PREOPERATIVE DIAGNOSES: 1. Persistent infecting draining sinus, right medial breast inframammary crease. 2. Multiple medical comorbidities including amyotrophic lateral sclerosis (AML). POSTOPERATIVE DIAGNOSES: 1. Persistent infecting draining sinus, right medial breast inframammary crease. 2. Multiple medical comorbidities including amyotrophic lateral sclerosis (AML). PROCEDURE: Excision of breast tissue including chronic draining sinus cavity (functionally excisional breast biopsy). ANESTHESIA: Local with monitored anesthesia care; Isa Roberts CRNA, and 10 mL of 0.25% Marcaine with epinephrine. INDICATION: This markedly debilitated 75-year-old white woman is a patient of Dr. Prasanth Ziegler. She is considered to have amyotrophic lateral sclerosis and other medical problems including diabetes, morbid obesity and so on. She was seen in followup from the right inferior breast infection located in the medial aspect. This was suggestive of an epidermal inclusion cyst. She has had episodic drainage of purulent material and has a foul smell to it. She does have progressive debility related to her ALS. There is no sign of systemic infection or local cellulitis. As there is persistence of the problem, I have recommended excision of the area. Though unlikely represent manifestation of breast cancer, there is a possibility. Wide excision is anticipated. Whether or not closure is appropriate will depend on findings at operation. The risks of bleeding, infection, and so forth were reviewed with her. She understands and wished to proceed. FINDINGS: The chronic draining sinus was deeper than expected. It was at least 1.5 inches into the breast parenchyma. Wide local excision was undertaken functionally consistent with breast biopsy essentially. This included all of the inflammatory cavity and sinus Electronically Signed By: CHUCK MARLOW MD 05/29/20 0825 PATIENT NAME: MIKE GUTIERREZ OPERATIVE REPORT DATE OF : 49 REPORT #: [id number] PHYSICIAN: CHUCK MARLOW MD PCP: PRASANTH ZIEGLER DO REPORT IS CONFIDENTIAL AND NOT TO BE RELEASED WITHOUT AUTHORIZATION [facility] [address] [place], [place] [address] Signed tract. Though the remaining breast tissue appeared relatively normal given the chronic infected nature of the area, the wound was packed open with plain gauze rather than close primarily. DESCRIPTION OF PROCEDURE: The patient was brought to the operating room, placed in the position of maximal pacer shunt comfort, which was with somewhat elevated back and arms at the side largely. The right breast in the chest wall inferiorly prepared with a chlorhexidine solution and draped sterilely. Preoperative antibiotic Ancef was given. Probing of the sinus tracts showed it to go deeper than expected. Cultures were obtained. A 10 mL of 0.25% Marcaine with epinephrine was injected locally in an elliptical configuration. As the lesion was in the medial aspect of the inferior mammary crease, wide local excision was undertaken including skin in the draining sinus tract and wide excision of breast parenchyma down to and including the area of the chest wall. A substantial of functional breast biopsy was obtained incorporating the lesion in question. The edges of the skin were secured with electrocautery as appropriate. Consideration was made for primary closure, but given her history and known infection, it deemed more appropriate to simply packed in a single layer of course gauze. Dressing was applied. The patient was allowed to emerge from sedation, taken to the recovery room in good condition having suffered no known complications. Sponge, needle, and instrument counts were reported as correct x3. MD JOEL Dumont/SCOTTL /[id number] cc: Prasanth Ziegler DO Copies: PRASANHT ZIEGLER DO ~ Electronically Signed By: CHUCK MARLOW MD 05/29/20 0825 PATIENT NAME: MIKE GUTIERREZ OPERATIVE REPORT DATE OF : 49 REPORT #: [id number] PHYSICIAN: CHUCK MARLOW MD PCP: PRASANTH ZIEGLER DO REPORT IS CONFIDENTIAL AND NOT TO BE RELEASED WITHOUT AUTHORIZATION
--- NOTE | 2020-05-30 12:55 | PATH ---
[facility] [address] [place], [place] [address] Signed SPECIMEN(S): A RIGHT BREAST SPECIMEN SOURCE: A. RIGHT BREAST CLINICAL HISTORY: Right breast abscess. FINAL PATHOLOGIC DIAGNOSIS: Skin and soft tissue, right breast, excision: - Epidermoid inclusion cyst with evidence of prior rupture and surrounding exuberant chronic inflammation. - No evidence of malignancy. NAL:cml:C2NR MICROSCOPIC EXAMINATION: Histologic sections of all submitted blocks are examined by light microscopy. These findings, together with the gross examination, support the pathologic diagnosis. GROSS DESCRIPTION: The specimen, labeled ", A," and designated on the requisition "right breast tissue with abscess," is received in formalin and consists of an unoriented, 6.0 x 3.1 x 2.9 cm piece of fibrofatty tissue with an unoriented, 3.0 x 0.7 cm, knowles skin ellipse. The skin ellipse has a 0.3 x 0.2 cm defect extending into the underlying fibrofatty tissue. The external surface of the fibroid tissue is inked blue. The specimen is cross-sectioned to reveal yellow, lobulated, fibrofatty tissue with rare areas of fibroglandular tissue comprising less than 5% of the parenchyma. Additionally, directly beneath the skin surface defect is a 1.0 x 0.7 x 0.5 cm partially cystic-like, knowles-white to dark red area of discoloration. The area of discoloration is 0.1 cm from the nearest blue inked margin. An additional discrete mass/lesion is not grossly identified. Rounding Machine Operator sections are submitted in three cassettes (A1-A3). Cold ischemic time: Grossly indeterminable due to lack of information. Formalin fixation time: Between 6 and 72 hours. AI (under the direct supervision of a pathologist) The Gross Description was prepared using a voice recognition system. The report was reviewed for accuracy; however, sound-alike word errors, addition PATIENT NAME: MIKE GUTIERREZ PATHOLOGY DATE OF : 49 REPORT #: [id number] PHYSICIAN: JOSUE MCGINNIS PCP: DANO ZIEGLER DO REPORT IS CONFIDENTIAL AND NOT TO BE RELEASED WITHOUT AUTHORIZATION [facility] [address] [place], [place] [address] Signed and/or deletions may occur. If there is any question about this report, please contact Client Services. PERFORMING LABORATORY: The technical component was performed by [employer], [address] [place] [id number] (Cafeteria Director: Xiomara Zeng MD; CLIA# [id number]). Professional interpretation was performed by [employer] [facility], [address] [address] (CLIA# [id number]). Diagnostician: Blanca Carney MD Pathologist Electronically Signed 05/30/2020 Copies: ~ PATIENT NAME: MIKE GUTIERREZ PATHOLOGY DATE OF : 49 REPORT #: [id number] PHYSICIAN: JOSUE MCGINNIS PCP: DANO ZIEGLER DO REPORT IS CONFIDENTIAL AND NOT TO BE RELEASED WITHOUT AUTHORIZATION
== END 2020-05-28 10:20 | disposition home or self-care (01) ==
LOC: DS 06:33 → OPS 06:33 → DS 08:00 → OPS 10:20
PROVIDERS: Surgery
PROC: 0HB5XZX Excision of Chest Skin, External Approach, Diagnostic (ICD-10-PCS; principal; 2020-05-28 08:00)
DX: N61.1 Abscess of the breast and nipple (principal); G12.21 Amyotrophic lateral sclerosis; E11.9 Type 2 diabetes mellitus without complications; I10 Essential (primary) hypertension; J44.9 Chronic obstructive pulmonary disease, unspecified; K21.9 Gastro-esophageal reflux disease without esophagitis; G47.33 Obstructive sleep apnea (adult) (pediatric); E66.01 Morbid (severe) obesity due to excess calories; Z68.32 Body mass index [BMI] 32.0-32.9, adult; Z88.2 Allergy status to sulfonamides; Z79.899 Other long term (current) drug therapy; Z87.891 Personal history of nicotine dependence
CPT/HCPCS: 00404; 80053; 85025; 93005; 93010; J0690; J1644; J2001; J2250; J2704; J7121

== ENCOUNTER 2020-07-30 19:15 | Emergency (ER) | payer MEDICARE, OTHER ==
[~2020-07-30] VITALS: Ht 160 cm; Wt 84.4 kg
[~2020-07-30 19:15] MED LIST changes: +ACETAMINOPHEN500 MG PO; +ALDACTONE50 MG PO; +IBUPROFEN600 MG PO
[2020-07-30] MEDS ORDERED: RILUZOLE50 MG PO (19:28)
[2020-07-30] MEDS ORDERED: NEURONTIN300 MG PO (19:29)
[2020-07-30] MEDS ORDERED: PROZAC20 MG PO (19:29)
[2020-07-30] MEDS ORDERED: SINGULAIR10 MG PO (19:30)
== END 2020-07-30 20:56 | disposition home or self-care (01) ==
LOC: ED 19:15
DX: T17.320A Food in larynx causing asphyxiation, initial encounter (principal); G12.21 Amyotrophic lateral sclerosis; R47.02 Dysphasia; Z87.891 Personal history of nicotine dependence; Z88.2 Allergy status to sulfonamides; Z79.899 Other long term (current) drug therapy; Z79.84 Long term (current) use of oral hypoglycemic drugs
CPT/HCPCS: 71045; 80053; 85025; 99284-25